=== PATIENT | female | born 1935 | race Caucasian/White ===

== ENCOUNTER 2017-05-12 13:51 | Emergency (ER) | payer OTHER, MEDICARE ==
[~2017-05-12] VITALS: Ht 154.9 cm; Wt 74.8 kg
[~2017-05-12 13:51] MED LIST: CLARINEX5 M1 PO; GUAIFENESIN-COD10 ML PO; NASONEX17 GM NASB; PATADAY2.5 ML OPH; TESSALON PERLE100 M1 PO; VENTOLIN HFA18 GM INH
[2017-05-12 13:57] VITALS: BP 165/80
--- NOTE | 2017-05-12 14:02 | ED HAND/WRIST INJURY COMPLAINT ---
History of Present Illness General Chief Complaint: Hand or Wrist Injury Stated Complaint: BIBA, RIGHT WRIST PAIN Source: patient, family, old records, EMS Exam Limitations: no limitations Vital Signs & Intake/Output Vital Signs & Intake/Output Vital Signs Date Time Temp Pulse Resp B/P B/P Pulse O2 O2 Flow FiO2 Mean Ox Delivery Rate 05/12 1403 99 Room Air 05/12 1402 98.5 05/12 1357 8.5 72 18 165/80 96 Room Air Allergies Coded Allergies: No Known Allergies (08/12/15) Reconcile Medications Albuterol Sulfate (Ventolin Hfa) 18 GM HFA.AER.AD 2 PUF INH Q4-6 PRN PRN ASTHMA Benzonatate (Tessalon Perle) 100 MG CAPSULE 1 TAB PO TID PRN COUGH Cephalexin (Keflex) 500 MG CAPSULE 1 CAP PO TID cellulitis Desloratadine (Clarinex) 5 MG TABLET 1 TAB PO DAILY ALLERGIES Mometasone Furoate (Nasonex) 17 GM SPRAY.PUMP 2 SPRAY NASB DAILY ALLERGIES Olopatadine HCl (Pataday) 2.5 ML DROPS 1 GTT OPH DAILY ALLERGIC CONJUNCTIVITIS Oxycodone HCl/Acetaminophen (Percocet 5-325 MG Tablet) 5 MG-325 MG TABLET 1 TAB PO BID PRN pain Robitussin AC (Guaifenesin-Codeine Syrup) 10 ML LIQUID 5 ML PO QPM PRN COUGH Triage Note: 81 YEAR OLD FEMALE TO ER VIA AMBULANCE FROM HER HOME WITH COMPLAINTS OF 2 DAYS OF R WRIST PAIN , DENIES INJURY AND STATES THAT SHE WOKE THIS AM AND SHE IS UNABLE TO USE HER R HAND DUE TO PAIN, R WRIST NOTED TO BE RED AND WARM TO TOUCH, AFEBRILE, PAIN IS CONSTANT 10/10. DENIES INJURY. Triage Nurses Notes Reviewed? yes Occurred: just prior to arrival Duration: day(s): (2), constant Timing: recent history Injury Environment: home Severity: moderate Severity Numbers: 10 Pain/Injury Location: Right: Wrist. Method of Injury: unknown Modifying Factors: Improves With: rest. Worsens With: movement. Associated Symptoms: swelling, redness HPI: 81-year-old female with history of hypertension, nephrectomy, Presents the emergency room brought in by ambulance with her son presents complaining of 2 day history of right wrist pain. She denies any known injury or trauma however states she believes she was bit by a spider. She states it has been red warm and painful. No fever no chills she is not taken anything for pain. Pain is worse with attempted range of motion of her wrist. She denies any hand forearm or other joint pain. No chest pain shortness of breath abdominal pain (William Cervantes) Past History Travel History Traveled to [place] past 21 day No Medical History Any Pertinent Medical History? see below for history Neurological: NONE EENT: NONE Cardiovascular: HTN, LE EDEMA Respiratory: NONE Gastrointestinal: NONE Hepatic: NONE Renal: 1 KIDNEY (HX OF CA) Musculoskeletal: NONE Psychiatric: NONE Endocrine: NONE Blood Disorders: NONE Cancer(s): NONE PROCEDURES NURSE/Reproductive: NONE Surgical History Surgical History: non-contributory Psychosocial History What is your primary language Vietnamese Tobacco Use: Never used ETOH Use: denies use Illicit Drug Use: denies illicit drug use Family History Hx Contributory? No (William Cervantes) Review of Systems Review of Systems Constitutional: Reports: see HPI. Comments Review of systems: See HPI, All other systems negative. Constitutional, no chills no fever, no malaise no weight loss HEENT: no sore throat no congestion, Cardiovascular: No chest pain , Skin: see hpi Respiratory: No dyspnea no cough GI: No nausea no vomiting, Muscle skeletal: (+) joint pain, no back pain Neurologic: , no headache Heme/endocrine: No bruising Immunology: No lymphadenopathy (William Cervantes) Physical Exam Physical Exam General Appearance: well developed/nourished, alert, awake Hand Left: normal inspection, normal range of motion Hand Right: normal range of motion Comments: Well-developed well-nourished person in no acute distress HEENT: Normal EENT exam; PERRL, EOMI, HEAD is atraumatic. moist mucous membranes. Neck: Supple, nnormal range of motion Back: Full range of motion Cardiovascular: Regular rate and rhythms no murmur Respiratory: Chest nontender.There were no bony deformities, no asymmetry. No respiratory distress. Patient speaking in full complete sentences. Breath sounds clear to auscultation bilaterally: NO W/R/R Shoulder: Atraumatic/Stable. FROM . Elbow: Atraumatic/stable. FROM. No laxity Upper arm/Forearm: Atraumatic. Nontender. No edema, 5 out of 5 icebox man strength noted to bilateral upper extremities Hand/Wrist: Skin intact. Limited range of motion secondary to pain, there is erythema and warmth and tenderness over the dorsal right wrist, no effusion the hand is atraumatic with full range of motion of all fingers there is no streaking up the forearm the form is atraumatic skin is intact- No obvious bite gayathri noted Pulses: Normal/equal radial pulses bilaterally. Brisk cap refill Lower Extremity: No edema, full range of motion of extremities Neuro: Alert oriented x3, motor sensory normal,. There were no obvious focal neurologic abnormalities. Skin: skin is warm and dry. Psych: Mood and affect is normal, memory and judgment is normal. (Vee HUGHES,William) Progress Differential Diagnosis: abscess, cellulitis, contusion, dislocation, fracture, gout, septic arthritis, sprain Plan of Care: Orders Procedure Date/time Status LACTIC ACID 05/12 1710 Active Durable Medical Equipment 05/12 1614 Active BLOOD CULTURE 05/12 141 Active LACTIC ACID 05/12 141 Complete HIGH SENSITIVITY CRP 05/12 141 Complete WESTERGREN SED RATE 05/12 141 Active COMPREHENSIVE METABOLIC PANEL 05/12 141 Complete CBC WITHOUT DIFFERENTIAL 05/12 1409 Active Laboratory Tests 05/12/17 1440: Anion Gap 8, Estimated GFR > 60, BUN/Creatinine Ratio 23.3, Glucose 109 H, Lactic Acid 0.7, Calcium 9.3, Total Bilirubin 0.7, AST 24, ALT 21, Alkaline Phosphatase 102, C-React Prot High Sens 12.8 H, Total Protein 6.8, Albumin 3.8, Globulin 3.0, Albumin/Globulin Ratio 1.3, CBC w Diff NO MAN DIFF REQ, RBC 4.25, MCV 84.8, MCH 28.5, MCHC 33.6, RDW 15.3 H, MPV 7.1 L, Gran % 82.3 H, Lymphocytes % 8.9 L, Monocytes % 8.3, Eosinophils % 0.5, Basophils % 0, Absolute Granulocytes 9.7 H, Absolute Lymphocytes 1.1 L, Absolute Monocytes 1.0 H, Absolute Eosinophils 0.1, Absolute Basophils 0, ESR Westergren Pending Microbiology 05/12 144 BLOOD: Blood Culture - RECD 05/12 1409 BLOOD: Blood Culture - ORD Labs ordered old records reviewed case discussed with Dr. Dove agrees with plan I discussed the patient and her son at leave fall for lab results. Advised close follow-up with her primary care physician tomorrow for wound check. Brace was applied. I discussed with them my differential included cellulitis versus septic arthritis we will treat her with Keflex they're requesting Percocet for pain brace was applied return precautions were discussed including worsening pain despite medication fever chills she is nontoxic appearing at this time they feel comfortable with this plan I advised if she is unable to follow up with her doctor in 24-48 hours to return here Diagnostic Imaging: Viewed by Me: Radiology Read. Discussed w/RAD: Radiology Read. Radiology Impression: PATIENT: DONALD TOLLIVER PRESENT AGE: 81 PATIENT ACCOUNT NO: [id number] : 37 LOCATION: [facility] ORDERING PHYSICIAN: William HUGHES SERVICE DATE: 05/12/17-1409 EXAM TYPE: RAD - XRY-WRIST COMPLETE-RIGHT EXAMINATION: XR WRIST, RIGHT CLINICAL INFORMATION : Redness and swelling. COMPARISON: None TECHNIQUE: Four views of the right wrist. FINDINGS: There are bandages over the wrist. There is no acute abnormality. There is no fracture or bone destruction. There are chronic changes. There are subchondral cystic changes primarily affecting the sclerotic triquetrum as well as the lunate and hamate. There is spurring of the navicular and multangular bones at the radial side of the wrist. IMPRESSION: No acute abnormality. Degenerative changes of the wrist. DICTATED BY: Dustin Cardona MD DATE/TIME DICTATED:05/12/171448 EQUINE DENTIST:JONNY DATE/TIME TRANSCRIBED:05/12/171448 CONFIDENTIAL, DO NOT COPY WITHOUT APPROPRIATE AUTHORIZATION. <Electronically signed in Other Vendor System> SIGNED BY: Dustin Cardona MD 05/12/17 1547 (William Cervantes) Departure Departure Time of Disposition: 1614 Disposition: HOME OR SELF CARE Condition: Stable Clinical Impression Primary Impression: Cellulitis Referrals: Tano Sue APRN (PCP/Family) Additional Instructions: Follow-up with your primary care physician as discussed tomorrow for follow-up evaluation tomorrow or Wednesday. Keflex as directed Percocet for breakthrough pain. Use caution as this may make you drowsy. Rest ice brace as discussed return anytime sooner as discussed if he had worsening pain despite medication redness warm swelling. Departure Forms: Customer Survey General Discharge Information Prescriptions: Current Visit Scripts Oxycodone HCl/Acetaminophen (Percocet 5-325 MG Tablet) 1 TAB PO BID PRN pain #10 TAB Cephalexin (Keflex) 1 CAP PO TID #21 CAP (William Cervantes) PA/GLAZING DEPARTMENT SUPERVISOR Co-Sign Statement Statement: ED Attending supervision documentation- [X] I saw and evaluated the patient. I have also reviewed all the pertinent lab results and diagnostic results. I agree with the findings and the plan of care as documented in the PA's/GLAZING DEPARTMENT SUPERVISOR's documentation. [X] I have reviewed the ED Record and agree with the PA's/GLAZING DEPARTMENT SUPERVISOR's documentation. [] Additions or exceptions (if any) to the PAs/GLAZING DEPARTMENT SUPERVISOR's note and plan are summarized below: [] (Derrell STINSON,Malini)
--- NOTE | 2017-05-12 14:56 | RADIOLOGY REPORT ---
EXAMINATION: XR WRIST, RIGHT CLINICAL INFORMATION: Redness and swelling. COMPARISON: None TECHNIQUE: Four views of the right wrist. FINDINGS: There are bandages over the wrist. There is no acute abnormality. There is no fracture or bone destruction. There are chronic changes. There are subchondral cystic changes primarily affecting the sclerotic triquetrum as well as the lunate and hamate. There is spurring of the navicular and multangular bones at the radial side of the wrist. IMPRESSION: No acute abnormality. Degenerative changes of the wrist.
[2017-05-12 15:00] LABS: ABSOLUTE BASOPHIL COUNT 0 /CUMM (0.0-0.2); ABSOLUTE EOSINOPHIL COUNT 0.1 /CUMM (0.0-0.7); ABSOLUTE GRANULOCYTE CT 9.7 /CUMM (1.4-6.5); ABSOLUTE LYMPH COUNT 1.1 /CUMM (1.2-3.4); BASOPHIL % 0 % (0.0-2.0); EOSINOPHIL % 0.5 % (0-5); GRANULOCYTE % 82.3 % (42.2-75.2); HEMATOCRIT 36.1 % (37-47); MEAN CORPUSCULAR HGB 28.5 PG (27.0-31.0); MEAN CORPUSCULAR HGB CONC 33.6 G/DL (33.0-37.0); MEAN CORPUSCULAR VOLUME 84.8 FL (81.0-99.0); MEAN PLATELET VOLUME 7.1 FL (7.4-10.4); PLATELET COUNT 335 /CUMM (130-400); RBC DISTRIBUTION WIDTH 15.3 % (11.5-14.5); RED BLOOD CELL CT 4.25 /CUMM (4.20-5.40); WHITE BLOOD CELL COUNT 11.8 /CUMM (4.8-10.8)
[2017-05-12] MEDS ORDERED: KEFLEX500 M1 PO (16:16)
[2017-05-12] MEDS ORDERED: PERCOCET 5-3251 EACH PO (16:16)
== END 2017-05-12 16:36 ==
LOC: ERH 13:51
PROVIDERS: Physician Assistant Medical
DX: L03.113 Cellulitis of right upper limb (principal)
CPT/HCPCS: 73110-RT; 87040

== ENCOUNTER 2017-07-05 01:13 | Inpatient (IN) | payer OTHER, MEDICARE ==
[~2017-07-05] VITALS: Ht 154.9 cm; Wt 80.3 kg
[~2017-07-05 01:13] MED LIST changes: +AMLODIPINE BESYL5 M1 PO; +ESTRACE0.5 M1 PO; +FLUTICASONE PRO16 GM NASB; +KEFLEX500 M1 PO; +LASIX20 M1 PO; +LIDOCAINE1 EACH TOP; +LOSARTAN POTASS50 M1 PO; +PERCOCET 5-3251 EACH PO; +TRAMADOL HCL50 M1 PO; +TRAZODONE HCL50 M1 PO
--- NOTE | 2017-07-05 09:51 | Operative Report ---
Operative/Inv Procedure Report Surgery Date: 07/05/17 Name of Procedure: Left total knee arthroplasty Pre-Operative Diagnosis: Left knee primary osteoarthritis Post-Operative Diagnosis: Same Estimated Blood Loss: scant Surgeon/Paste Mixing Supervisor: Neha STINSON,Morteza Perkins PA Anesthesia: block Implants: Isa triathlon total knee system-size 3 femur, size 3 tibia, 11 mm cruciate retaining polyethylene, 27 patella Drains: None Specimens: Femoral, tibial, patellar bone, meniscal tissues Microbiology: Urine Tourniquet: 52 min Complications: None Condition: Stable Operative Indication: Patient is a 81-year-old woman with a long history of gradually worsening left knee symptoms. She was diagnosed with severe end-stage osteoarthritis by x-ray. She underwent conservative measures with minimal relief. She underwent total knee arthroplasty on the right side elsewhere in the past. She wished to proceed with total knee arthroplasty for the left after risks, benefits and expectations of the surgical treatment which included but were not limited to persistent knee pain, need for subsequent surgery, infection, DVT, injury to blood vessel or nerve, anesthesia risks Operative/Procedure Note Note: Patient was brought to the operating room and transferred to the operating table. Once under appropriate anesthesia the left lower extremity was prepped and draped in standard fashion. Preoperative IV antibiotics were given prophylactically. Left lower extremity was elevated exsanguinated and tourniquet was inflated to 300 mm of pressure. Standard anterior incision was made for anticipated medial parapatellar approach to the knee. Incision was taken down sharply to the underlying retinaculum. A medial retinacular approach was used with a minimal extension into the quadriceps tendon. The patella was subluxed and the knee was flexed forward after balancing soft tissues medially. Remnants of the medial and lateral meniscal tissues were excised. Eburnated bone on the medial aspect. Severe degenerative changes in the lateral aspect. Mild degenerative changes of the patella surface were noted. Remnants of the ACL was excised. Placing the retractors medially and laterally. I then proceeded with using the drill to enter the intramedullary canal for the intramedullary guide for the distal femoral cut. The cutting block was pinned in position for a 6 valgus cut. This was made while protecting the soft tissues. The femur was incised to a size 4 initially but then when I started making my cut it was clear the patient was posterior to 3. I used the 3 cutting block to finish preparation of the distal femur. I then placed a PCL retractor posteriorly and recessed the PCL for balancing purposes. I repositioned the medial lateral knee retractors and then used the external medullary guide for the tibial. The cutting block was pinned in place for a neutral cut from medial to lateral and reproducing patient's posterior slow- paced on intraoperative findings and preoperative x-rays. The cut was made. I then sized the tibia to a size 3. 2 trial reduction with the 3 tibia 11 mm polyethylene and the 3 femur. The knee was taken out to full extension. The patella was then measured and the appropriate thickness was removed and then replaced with a size 27 patella. The 3 lug holes were drilled and the patellar tracking was found to be excellent. I then removed all trial components. I finished preparation of tibia with the tibial punch with the appropriate rotation based on the anatomy as well as the trial reduction done previously. I then removed all instruments from the knee and copiously irrigated the knee. I used the anterior chamfer bone to plug the distal femur to minimize postoperative hemarthrosis and swelling. Once the cement was ready was applied to the dry clean bony surfaces of the tibia. The size 3 tibia was impacted in place and excess cement was removed curettes. Cement was applied to the dry clean bony surfaces of the distal femur and the size 3 femur was impacted in place and excess cement was removed with curettes. The 11 mm trial polyethylene was inserted and the knee was taken out to full extension to pressurize the cement bone surfaces. Cement was applied to the dry clean bony surfaces of the patella. The size 27 patella was impacted in place and excess cement was removed with a knife. As the cement was hardening I did appear articular pericapsular injection of a cocktail which included ropivacaine with epinephrine and Toradol for postoperative pain and inflammation management cement was hardening took the knee through range of motion. Small pieces of excess cement removed with osteotome. The trial polyethylene was removed after was satisfied with the stability the knee in full extension mid flexion and full flexion to gravity. Excellent patellofemoral tracking. Copious irrigation the tibial tray followed. I major there was no remaining soft tissue, bone fragments or cement fragments within the tibial tray and then I impacted the definitive size 11 mm cruciate retaining polyethylene in place. The locking mechanism was confirmed. Again the knee was taken through range of motion. I was satisfied with the stability in the range of motion. Copious irrigation followed. Copious irrigation followed every level of closure. Tourniquet was deflated at 52 minutes. Hemostasis was obtained. I then closed the retinaculum and minimal extension into the quadriceps with interrupted #1 Vicryl sutures. Subcutaneous tissues closed in 2 layers with 2-0 Vicryl and skin was closed with a running 3- 0 Vicryl suture with the knee in flexion. Appropriate dressings were applied and patient was awakened and taken to recovery room in good condition. No intraoperative complications. Blood loss was scant Discharge Disposition: PACU
--- NOTE | 2017-07-05 11:56 | PN- Cardiology ---
Subjective Subjective: Charming patient of 81 years of age with new onset atrial fibrillation uncovered in the PACU unit, immediately post operatively of total left knee replacement which was uneventful. The patient has a personnal medical history of hypertension well controlled with her drug regimen (no list at the moment of home meds) and pelvic floor repair. She has never had a stroke, embolism of thrombosis, no know CAD, no heart failure, no diabetes, no bleeding diasthesis. Her pain level is 0/10 at the moment, she denies chest pain, denies palpitations , denies dyspnea. EKG shows atrial fibrillation with ventricular rate around 90bpm, without evidence of ischemia or prior TN. Review of Systems Constitutional: Reports: see HPI. Cardiovascular: Reports: see HPI. Respiratory: Denies: cough, hemoptysis, orthopnea, short of breath, sputum production, wheezing. Gastrointestinal: Denies: abdominal pain, diarrhea, distention, bowel incontinence, melena, bloody stool. Genitourinary: Denies: dysuria, hematuria. Neurological/Psychological: Denies: anxiety, depressed, paresthesia, pre-existing deficit, tremors. Hematologic/Endocrine: Denies: bleeding. Objective Vital Signs and I&Os Sat: 96% on room air BP 104/80 HR 85-110 bpm, irregular Physical Exam General Appearance: no apparent distress, awake, comfortable Head: atraumatic Neck: normal inspection Respiratory: normal breath sounds, no respiratory distress, lungs clear Cardiovascular: irregularly irregular (NO MURMUR AUDIBLE) Abdomen: soft, non-tender, no organomegaly Extremities: normal capillary refill (LEFT LOWER EXTREMITY COVERED), no edema ( RIGHT LEG) Neurologic/Psychiatric: awake, alert, oriented x 3, normal mood/affect Current Medications: Current Medications Sig/Argelia Start time Last Medication Dose Route Stop Time Status Admin Acetaminophen 0 .STK-MED ONE 07/06 703 DC PO Acetaminophen 650 MG ONCE 07/05 NR PO 07/05 2358 Celecoxib 400 MG ONCE 07/05 NR PO 07/05 2358 Dexamethasone 0 .STK-MED ONE 07/06 703 DC .ROUTE Dexamethasone 10 MG ONCE 07/05 0000 NR IV 07/05 2358 Gabapentin 0 .STK-MED ONE 07/05 704 DC PO Gabapentin 300 MG ONCE 07/05 NR PO 07/05 2358 Oxycodone HCl 0 .STK-MED ONE 04/30 0704 DC PO Oxycodone HCl 10 MG ONCE 07/05 0000 NR PO 07/05 235 Ropivacaine 500 ML ONCE ONE 07/05 1030 AC ON-Q Ball 1 BAG INJ 07/07 1229 Scopolamine HBr 0 .STK-MED ONE 07/05 0704 DC TOP Scopolamine HBr 1 PAT ONCE 07/05 0000 NR TOP 07/05 235 Vancomycin HCl 1,000 MG ONCE 07/05 0000 DC Sodium Chloride 250 ML IV 07/05 235 Assessment/Plan Assessment/Plan New onset atrial fibrillation immediately post op of total left knee replacement. CHADS 2 (age, hypertension). HR is well controlled at the moment, but i would begin a small dose of betablocker to avoid tachyarrhythmia (metoprolol 25 mg PO bid). There is no urgency to anticoagulate as her daily stroke risk is < 1%. Eliquis would be a good choice, there is no counterindication once orthopedic surgery is comfortable, it could be started at 5 mg PO bid in 2-3 days. An echocardiogram should be done as part of the regular routine for new onset afib as well as a nuclear stress test (nuclear stress could be done as outpatient). Continue telemetry? Yes
--- NOTE | 2017-07-05 13:14 | PN- Orthopedic ---
See Addendum Subjective Subjective: POC Patient noted to be in new onset atrial fibrillation immediately post op, given Labetalol x 1 with good effect. Evaluated in PACU by cardiology who recommends low dose beta diogo (Metoprolol 25 mg BID). Patient without complaints currently. Denies any left knee pain. Denies any chest pain or SOB. Eric in place with clear yellow urine. Objective Vital Signs and I&Os Afebrile, VSS. HR 70-80. Physical Exam: Lying in bed in NAD. Cardiac: irregularly irregular Pulmonary: CTAB Abdomen: Soft, non tender. LLE: Dressing c/d/i. No drainage noted. Calf soft, compressible, non tender. + DP/PT pulse. Sensation and motor grossly intact. Assessment/Plan Assessment/Plan A/P: 81 y/o female POD # 0 s/p left TKR complicated by new onset atrial fibrillation. Evaluated by cardiology in PACU. Currently stable post operatively. - Diet as tolerated - Pain control and antiemetics prn, on Q pump - PT consult - Home medications resumed - Eric to gravity - Post op L Knee x-ray - Cardiology following - started on low dose BB (Metoprolol 25 mg BID), recommend echo and nuclear stress test (can be done as outpatient) - DVT ppx - Eliquis 2.5 mg BID to start tomorrow Core Measures Venous Thromboembolism VTE Risk Factors Surgery No Mechanical VTE Prophylaxis d/t N/A MechProphylax Ordered No VTE Pharm Prophylaxis d/t NA PharmProphylax ordered
[2017-07-05 14:04] VITALS: BP 100/70
--- NOTE | 2017-07-05 14:58 | Cons- Cardiology ---
General Information and HPI Consulting Request Date of Consult: 07/05/17 Requested By: Neha STINSON,Gregorio History of Present Illness: Rachid patient of 81 years of age with new onset atrial fibrillation uncovered in the PACU unit, immediately post operatively of total left knee replacement which was uneventful. The patient has a personnal medical history of hypertension well controlled with her drug regimen (no list at the moment of home meds) and pelvic floor repair. She has never had a stroke, embolism of thrombosis, no know CAD, no heart failure, no diabetes, no bleeding diasthesis. Her pain level is 0/10 at the moment, she denies chest pain, denies palpitations , denies dyspnea. EKG shows atrial fibrillation with ventricular rate around 90bpm, without evidence of ischemia or prior ID. Allergies/Medications Allergies: Coded Allergies: No Known Allergies (06/28/17) Home Med List: Amlodipine Besylate 5 MG TABLET 1 TAB PO DAILY HTN (Reported) Estradiol (Estrace) 0.5 MG TABLET 1 TAB PO DAILY HORMONE (Reported) Fluticasone Propionate 50 MCG/ACTUATION SPRAY.SUSP 1 SPRAY NASB PRN ALLERGIES (Reported) Furosemide (Lasix) 20 MG TABLET 1 TAB PO PRN DIURETIC (Reported) Lidocaine 5 % ADH..PATCH 1-2 PAT TOP DAILY PAIN (Reported) Losartan Potassium 50 MG TABLET 1 TAB PO DAILY BP (Reported) Tramadol HCl 50 MG TABLET 1 TAB PO TIDPRN PAIN (Reported) Trazodone HCl 50 MG TABLET 1 TAB PO QPM SLEEP (Reported) Current Medications: Current Medications Sig/Argelia Start time Last Medication Dose Route Stop Time Status Admin Acetaminophen 0 .STK-MED ONE 07/06 703 DC PO Acetaminophen 1,000 MG .STK-MED ONE 07/05 0656 DC IV 07/05 656 Acetaminophen 650 MG ONCE 07/05 0000 DC PO 07/05 2358 Amlodipine Besylate 5 MG DAILY 07/06 899 AC PO Apixaban 2.5 MG BID 07/06 899 AC PO Celecoxib 400 MG DAILY 07/06 899 AC PO Celecoxib 400 MG ONCE 07/05 0000 DC PO 07/05 2358 Dexamethasone 0 .STK-MED ONE 07/06 703 DC .ROUTE Dexamethasone 10 MG ONCE 07/05 0000 DC IV 07/05 2358 Dextrose/Lactated 1,000 ML Q13H 07/05 1200 AC Ringer's IV Docusate Sodium 100 MG DAILY NEEDED PRN 07/05 1200 AC PO Fentanyl Citrate 100 MCG .STK-MED ONE 07/05 0655 DC IM 07/05 0656 Furosemide 20 MG DAILY PRN 07/05 0945 AC PO Gabapentin 0 .STK-MED ONE 07/05 0705 DC PO Gabapentin 300 MG ONCE 07/05 0000 DC PO 07/05 2359 Losartan Potassium 50 MG DAILY 07/06 0900 AC PO Metoprolol Tartrate 25 MG BID 07/05 2100 AC PO Midazolam HCl 2 MG .STK-MED ONE 07/05 0655 DC IM 07/05 0656 Morphine Sulfate 2 MG Q3P PRN 07/05 1200 AC IV Morphine Sulfate 4 MG Q3P PRN 07/05 1200 AC IV Ondansetron HCl 4 MG Q6P PRN 07/05 1200 AC IV Oxycodone HCl 0 .STK-MED ONE 07/05 0704 DC PO Oxycodone HCl 10 MG ONCE 07/05 0000 DC PO 07/05 2359 Oxycodone/ 1 TAB Q4P PRN 07/05 1200 AC Acetaminophen PO Oxycodone/ 2 TAB Q4P PRN 07/05 1200 AC Acetaminophen PO Polyethylene Glycol 17 GM DAILY NEEDED PRN 07/05 1200 AC PO Ropivacaine 500 ML ONCE ONE 07/05 1030 AC ON-Q Ball 1 BAG INJ 07/07 1229 Scopolamine HBr 0 .STK-MED ONE 07/05 0704 DC TOP Scopolamine HBr 1 PAT ONCE 07/05 0000 DC TOP 07/05 2359 Senna/Docusate Sodium 2 TAB AT BEDTIME NEED.. 07/05 1200 AC PO Vancomycin HCl 1,000 MG ONCE ONE 07/05 1900 AC Sodium Chloride 250 ML IV 07/05 1959 Vancomycin HCl 1,000 MG ONCE 07/05 0000 DC Sodium Chloride 250 ML IV 07/05 2359 Review of Systems Review of Systems: Constitutional: Reports: see HPI. Cardiovascular: Reports: see HPI. Respiratory: Denies: cough, hemoptysis, orthopnea, short of breath, sputum production, wheezing. Gastrointestinal: Denies: abdominal pain, diarrhea, distention, bowel incontinence, melena, bloody stool. Genitourinary: Denies: dysuria, hematuria. Neurological/Psychological: Denies: anxiety, depressed, paresthesia, pre-existing deficit, tremors. Hematologic/Endocrine: Denies: bleeding. Past History Medical History Blood Transfusion Hx: No Neurological: NONE EENT: NONE Cardiovascular: HTN, LE EDEMA Respiratory: NONE Gastrointestinal: NONE Hepatic: NONE Renal: 1 KIDNEY (HX OF CA) Musculoskeletal: NONE Psychiatric: NONE Endocrine: NONE Blood Disorders: NONE Cancer(s): NONE CLIENT SOLUTIONS DIRECTOR/Reproductive: NONE Surgical History Surgical History: R NEPHRECTOMY Psychosocial History Where Do You Live? Home Smoking Status: Unknown If Ever Smoked Exam & Diagnostic Data Vital Signs and I&O Vital Signs Date Time Temp Pulse Resp B/P B/P Pulse O2 O2 Flow FiO2 Mean Ox Delivery Rate 07/05 1404 97.8 68 20 100/70 95 Room Air 07/05 1344 Room Air Intake & Output 07/05 1600 07/05 0800 07/05 0000 07/04 1600 07/04 0800 07/04 0000 Intake Total Output Total Balance Patient 170 lb Weight Weight Bed scale Measurement Method Physical Exam: Physical Exam General Appearance: no apparent distress, awake, comfortable Head: atraumatic Neck: normal inspection Respiratory: normal breath sounds, no respiratory distress, lungs clear Cardiovascular: irregularly irregular (NO MURMUR AUDIBLE) Abdomen: soft, non-tender, no organomegaly Extremities: normal capillary refill (LEFT LOWER EXTREMITY COVERED), no edema ( RIGHT LEG) Neurologic/Psychiatric: awake, alert, oriented x 3, normal mood/affect Labs/Zeyad Results: Laboratory Tests 07/05 1130 Chemistry Creatine Kinase (30 - 135 U/L) 102 Troponin I (< 0.11 ng/ml) < 0.01 Assessment/Plan Assessment/Plan New onset atrial fibrillation immediately post op of total left knee replacement. CHADS 2 (age, hypertension). HR is well controlled at the moment, but i would begin a small dose of betablocker to avoid tachyarrhythmia (metoprolol 25 mg PO bid). There is no urgency to anticoagulate as her daily stroke risk is < 1%. Eliquis would be a good choice, there is no counterindication once orthopedic surgery is comfortable, it could be started at 5 mg PO bid in 2-3 days. An echocardiogram should be done as part of the regular routine for new onset afib as well as a nuclear stress test (nuclear stress could be done as outpatient). Consult Acknowledgment - Thank you for your consult request.
--- NOTE | 2017-07-05 15:39 | Cons- Medical ---
Dylan STINSON,[facility] 07/05/17 1508: General Information and HPI Consulting Request Date of Consult: 07/05/17 Requested By: Neha STINSON,Gregorio Reason for Consult: New onset atrial fibrillation Source of Information: patient, old records Exam Limitations: no limitations History of Present Illness: Ms. 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 Patient was admitted to telemetry floor from PACU after left knee replacement with new onset atrial fibrillation. Patient is alert oriented 3 however reported dizziness. She denied any chest pain, palpitation, difficulty breathing, abdominal pain, nausea or vomiting. Left knee pain is controlled at time of the encounter. Patient denied any previous history of atrial fibrillation, denied being on any blood thinners in the past. Patient can not take any NSAIDs including aspirin because of her right nephrectomy. She denied any coronary artery disease history, CHF, history of stroke or TIA. Allergies/Medications Allergies: Coded Allergies: No Known Allergies (06/28/17) Home Med List: Amlodipine Besylate 5 MG TABLET 1 TAB PO DAILY HTN (Reported) Estradiol (Estrace) 0.5 MG TABLET 1 TAB PO DAILY HORMONE (Reported) Fluticasone Propionate 50 MCG/ACTUATION SPRAY.SUSP 1 SPRAY NASB PRN ALLERGIES (Reported) Furosemide (Lasix) 20 MG TABLET 1 TAB PO PRN DIURETIC (Reported) Lidocaine 5 % ADH..PATCH 1-2 PAT TOP DAILY PAIN (Reported) Losartan Potassium 50 MG TABLET 1 TAB PO DAILY BP (Reported) Tramadol HCl 50 MG TABLET 1 TAB PO TIDPRN PAIN (Reported) Trazodone HCl 50 MG TABLET 1 TAB PO QPM SLEEP (Reported) Review of Systems Review of Systems Constitutional: Denies: see HPI, chills, fever. EENTM: Denies: blurred vision, nasal congestion. Cardiovascular: Denies: chest pain, orthopena, palpitations, peripheral edema. Respiratory: Denies: cough, short of breath. GI: Denies: abdominal pain, diarrhea, nausea, vomiting. Genitourinary: Denies: discharge, dysuria. Musculoskeletal: Denies: back pain. Skin: Denies: rash. Past History Medical History Blood Transfusion Hx: No Neurological: NONE EENT: NONE Cardiovascular: HTN, LE EDEMA Respiratory: NONE Gastrointestinal: NONE Hepatic: NONE Renal: 1 KIDNEY (HX OF [place]) Musculoskeletal: NONE Psychiatric: NONE Endocrine: NONE Blood Disorders: NONE Cancer(s): NONE CONTROL PANEL TESTER/Reproductive: NONE Surgical History Surgical History: R NEPHRECTOMY Psychosocial History Where Do You Live? Home Smoking Status: Unknown If Ever Smoked Exam & Diagnostic Data Last 24 Hrs of Vital Signs/I&O Vital Signs Date Time Temp Pulse Resp B/P B/P Pulse O2 O2 Flow FiO2 Mean Ox Delivery Rate 07/05 1404 97.8 68 20 100/70 95 Room Air 07/05 1344 Room Air Intake & Output 07/05 1600 07/05 0800 07/05 0000 Intake Total Output Total Balance Patient 77.309 kg Weight Weight Bed scale Measurement Method Physical Exam General Appearance: no apparent distress, alert, awake Head: atraumatic, normal appearance Eyes: Bilateral: normal appearance, PERRL, EOMI. Ears, Nose, Throat: normal pharynx, normal ENT inspection Neck: normal inspection, supple, full range of motion Respiratory: normal breath sounds, chest non-tender, no respiratory distress Cardiovascular: irregularly irregular Gastrointestinal: normal bowel sounds, soft, non-tender Extremities: normal inspection, normal capillary refill, normal range of motion, no edema Neurologic/Psych: no motor/sensory deficits, awake, alert, oriented x 3, sales agent trading stamps II- XII nml as tested, disoriented x 3 Last 24 Hrs of Labs/Zeyad: Laboratory Tests 07/06/17 0645: Sodium Pending, Potassium Pending, Chloride Pending, Carbon Dioxide Pending, Anion Gap Pending, BUN Pending, Creatinine Pending, BUN/Creatinine Ratio Pending , CBC w Diff Pending, WBC Pending, RBC Pending, Hgb Pending, Hct Pending, MCV Pending, MCH Pending, MCHC Pending, RDW Pending, Plt Count Pending, MPV Pending, Gran % Pending, Lymphocytes % Pending, Monocytes % Pending, Eosinophils % Pending, Basophils % Pending, Absolute Granulocytes Pending, Absolute Lymphocytes Pending, Absolute Monocytes Pending, Absolute Eosinophils Pending, Absolute Basophils Pending 07/05/17 1130: Anion Gap 11, Estimated GFR 53 L, BUN/Creatinine Ratio 26.0 H, Glucose 266 H, Calcium 8.6, Magnesium 1.7, Creatine Kinase 102, Troponin I < 0.01, TSH 1.330 Assessment/Plan Assessment/Plan Ms. 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 Patient was admitted to telemetry floor from PACU after left knee replacement with new onset atrial fibrillation. Problem list 1-New onset atrial fibrillation chads vas score to 4 points with 4.8% annual stroke risk 2-Left total knee replacement Plan Continue monitor on telemetry Vitals every shift Obtain CBCs, basic metabolic panel including magnesium and phosphorus and replete if needed Coagulation profile TSH DDimer Continue metoprolol 25 twice daily Continue blood pressure medication losartan and amlodipine Pain medication per surgical team Please cluster nursing intervention during the daytime and provide quite sleep at night to avoid hospital-acquired delirium Anticoagulation per cardiology Recommendation for d-dimer and bilateral lower extremity venous Doppler scan as patient was recently hypoactive because of left knee pain. I discussed this recommendation with the surgical PA and she will discuss it with her attending and ordering if he agrees. Continue Alps at all time Problem List: 1. Atrial fibrillation Consult Acknowledgment - Thank you for your consult request. Edward Alejandro MD 07/05/17 3749: Assessment/Plan Consult Acknowledgment - Thank you for your consult request. Attending MD Review Statement Attending Statement Attending MD Statement: examined this patient, discuss w/resident/PA/MILL PLATFORM SUPERVISOR, agreed w/resident/PA/MILL PLATFORM SUPERVISOR, reviewed EMR data (avail), amended to note Attending Assessment/Plan: The patient is a 72 yo female with h/o HTN, h/o rectal/bladder prolapse and repair, h/o right TKR in past, s/p right nephrectomy (?benign tumor at [place]) who underwent elective left TKR today and was noted to be in new atrial fibrillation (HR 117 on EKG) post operatively. The patient has no h/o afib, denied chest pain , palpitations or dyspnea. Was given Labetalol post op and started on Metoprolol 25 mg bid by Cardiology after consultation. Physical Exam: VS: T 97.8, P 68 (max was 117), R 20, BP 100/70, PO 95% RA HEENT: eyes- PERRLA, EOMI yulisa- sl dry mucosa, no lesions Neck: No JVD/bruits Chest: clear Cor: sl irreg, nl rate, nl S1, S2 w/o murm Abd: BS+, soft, NT, - HSM Ext: s/p left TKR, no edema RLE, pulses 2+ Neuro: alert & oriented x 3, somewhat vague historian, non-focal exam (gait not tested) Labs/Tests- as above Impression/Plan: #New Atrial Fibrillation- HR now controlled post beta diogo. No ischemic findings on EKG. Cardiology consult appreciated. Jerald-Vasc 2 score as above 4 with 4.8% annual stroke risk. In patient who was relatively immobile prior to surgery, pulmonary embolism/dvt is in differential as cause. Plan: As per above- would check TSH, lytes (including K and Mg), D-dimer, US LE, INR. Consider SQ heparin as planning on Eliquis tomorrow. If any respiratory decompensation needs CTPA. ECHO done- check for pulmonary HTN, etc. Monitor on telemetry- follow-up TI. #Essential HTN- BP good at present. Plan: Continue Losartan/Amlodipine. Metoprolol being added and may need to hold other meds if BP low. #S/P Nephrectomy- renal function OK. The patient appears slightly dry. Plan: Watch renal function s/p dose of Vanco and using Celebrex. Would hold Lasix in morning pending BEP (she received a dose post op).
[2017-07-05 19:56] VITALS: BP 110/80
[2017-07-05 22:49] VITALS: BP 118/84
[2017-07-06 01:45] VITALS: BP 114/74
[2017-07-06 04:30] VITALS: BP 108/74
[2017-07-06 06:21] VITALS: BP 108/68
--- NOTE | 2017-07-06 07:38 | PN- Orthopedic ---
See Addendum Subjective Subjective: Patient reports pain is well controlled. She reports pain is her right calf from the alps. She is eager to get out of bed and have breakfast. She offers no complaints. Denies numbness, parathesias. Objective Vital Signs and I&Os Vital Signs Date Time Temp Pulse Resp B/P B/P Pulse O2 O2 Flow FiO2 Mean Ox Delivery Rate 07/06 620 97.5 49 12 108/68 93 Room Air 07/06 0430 97.8 70 16 108/74 100 Room Air 07/06 0145 97.8 64 20 114/74 98 Room Air 07/06 0000 Room Air 07/05 2249 97.7 72 19 118/84 94 07/05 2207 67 07/05 1956 97.8 98 18 110/80 95 07/05 1600 71 16 97 Room Air 07/05 1404 97.8 68 20 100/70 95 Room Air 07/05 1344 Room Air Intake & Output 07/06 0800 07/06 0000 07/05 1600 07/05 0800 07/05 0000 07/04 1600 Intake Total 960 1499 75 Output Total 400 400 Balance 560 1099 75 Intake, IV 600 815 75 Intake, Oral 360 684 Output, Urine 400 400 Patient 171 lb 170 lb Weight Weight Bed scale Measurement Method Physical Exam: Gen - resting comfortably in nad Cardiac - irregular, bradycardic Lungs - CTAB Ext - LLE dressing c/d/i, onQ and ice in place, moves all extremities, motor and sensory intact, compartment soft, alps in place no edema or calf tenderness in LLE, mild calf pain in RLE, alps readjusted and pain improved. Current Medications: Current Medications Sig/Argelia Start time Last Medication Dose Route Stop Time Status Admin Acetaminophen 650 MG ONCE 07/05 0000 DC PO 07/05 2358 Amlodipine Besylate 5 MG DAILY 07/06 899 AC PO Apixaban 2.5 MG BID 07/06 899 AC PO Celecoxib 400 MG DAILY 07/06 899 CAN PO Celecoxib 400 MG ONCE 07/05 0000 DC PO 07/05 2358 Dexamethasone 10 MG ONCE 07/05 DC IV 07/05 2358 Dextrose/Lactated 1,000 ML Q13H 07/05 1200 AC 07/06 Ringer's IV 0540 Docusate Sodium 100 MG BID PRN 05/01 0900 AC PO Docusate Sodium 100 MG DAILY NEEDED PRN 07/05 1200 DC PO Estradiol 0.5 MG DAILY 07/06 09 AC PO Furosemide 20 MG DAILY PRN 07/05 0945 AC PO Gabapentin 300 MG ONCE 07/05 0000 DC PO 07/05 2359 Losartan Potassium 50 MG DAILY 07/06 09 AC PO Magnesium Oxide 400 MG ONE ONE 07/05 2014 DC 07/05 PO 07/06 2015 220 Metoprolol Tartrate 25 MG BID 07/05 2100 AC 07/05 PO 2207 Morphine Sulfate 2 MG Q3P PRN 07/05 1200 AC 07/06 IV 0101 Morphine Sulfate 4 MG Q3P PRN 07/05 1200 AC IV Morphine Sulfate 10 MG .STK-MED ONE 07/05 0732 DC IV 07/05 0733 Ondansetron HCl 4 MG Q6P PRN 07/05 1200 AC IV Oxycodone HCl 10 MG ONCE 07/05 0000 DC PO 07/05 2359 Oxycodone/ 1 TAB Q4P PRN 07/05 1200 AC Acetaminophen PO Oxycodone/ 2 TAB Q4P PRN 07/05 1200 AC Acetaminophen PO Polyethylene Glycol 17 GM DAILY NEEDED PRN 07/05 1200 AC PO Potassium Chloride 40 MEQ ONCE ONE 07/05 2014 DC 07/05 PO 07/06 2015 220 Ropivacaine 500 ML ONCE ONE 07/05 1030 AC ON-Q Ball 1 BAG INJ 07/07 1229 Scopolamine HBr 1 PAT ONCE 07/05 0000 DC TOP 07/05 2359 Senna/Docusate Sodium 2 TAB DAILY PRN 07/06 0900 AC PO Senna/Docusate Sodium 2 TAB AT BEDTIME NEED.. 07/05 1200 DC PO Tranexamic Acid 2,000 MG .STK-MED ONE 07/05 0752 DC IV 07/05 0753 Trazodone HCl 50 MG AT BEDTIME NEED.. 07/05 2130 AC 07/05 PO 2207 Vancomycin HCl 1,000 MG ONCE ONE 07/05 1900 DC 07/05 Sodium Chloride 250 ML IV 07/05 1959 1835 Results Last 48 Hours of Labs: Laboratory Tests 07/06 07/05 0645 1130 Chemistry Sodium (137 - 145 mmol/L) Pending 136 L Potassium (3.5 - 5.1 mmol/L) Pending 3.8 Chloride (98 - 107 mmol/L) Pending 104 Carbon Dioxide (22 - 30 mmol/L) Pending 21 L Anion Gap (5 - 16) Pending 11 BUN (7 - 17 mg/dL) Pending 26 H Creatinine (0.5 - 1.0 mg/dL) Pending 1.0 Estimated GFR (>60 ml/min) 53 L BUN/Creatinine Ratio (7 - 25 %) Pending 26.0 H Glucose (65 - 99 mg/dL) 266 H Calcium (8.4 - 10.2 mg/dL) 8.6 Magnesium (1.6 - 2.3 mg/dL) 1.7 Creatine Kinase (30 - 135 U/L) 102 Troponin I (< 0.11 ng/ml) < 0.01 TSH (0.270 - 4.200 uIU/mL) 1.330 Hematology CBC w Diff Pending WBC Pending RBC Pending Hgb Pending Hct Pending MCV Pending MCH Pending MCHC Pending RDW Pending Plt Count Pending MPV Pending Assessment/Plan Assessment/Plan 81 F POD 1 s/p L TKR complicated by new onset atrial fibrillation PT eval, WBAT Regular diet, d/c IVF Pain control prn, on Q pump ? metoprolol dose in setting of bradycardia DVT ppx - eliquis 2.5 mg BID F/u echo, stress test done as outpt Home meds on board D/c marlyn F/u labs Appreciate cardiology and medicine's involvement Will d/w Dr. Burgess Core Measures Venous Thromboembolism VTE Risk Factors Surgery No Mechanical VTE Prophylaxis d/t N/A MechProphylax Ordered No VTE Pharm Prophylaxis d/t NA PharmProphylax ordered
[2017-07-06 07:53] LABS: ABSOLUTE BASOPHIL COUNT 0 /CUMM (0.0-0.2); ABSOLUTE EOSINOPHIL COUNT 0 /CUMM (0.0-0.7); ABSOLUTE GRANULOCYTE CT 14.5 /CUMM (1.4-6.5); ABSOLUTE LYMPH COUNT 0.8 /CUMM (1.2-3.4); ABSOLUTE MONOCYTE COUNT 1.3 /CUMM (0.10-0.60); BASOPHIL % 0 % (0.0-2.0); EOSINOPHIL % 0 % (0-5); GRANULOCYTE % 87.4 % (42.2-75.2); HEMATOCRIT 32.8 % (37-47); MEAN CORPUSCULAR HGB 28.4 PG (27.0-31.0); MEAN CORPUSCULAR HGB CONC 33.2 G/DL (33.0-37.0); MEAN CORPUSCULAR VOLUME 85.7 FL (81.0-99.0); MEAN PLATELET VOLUME 8.3 FL (7.4-10.4); PLATELET COUNT 268 /CUMM (130-400); RED BLOOD CELL CT 3.83 /CUMM (4.20-5.40); WHITE BLOOD CELL COUNT 16.6 /CUMM (4.8-10.8)
[2017-07-06 08:11] VITALS: BP 120/72
--- NOTE | 2017-07-06 08:16 | PN- Medicine Consult ---
Dylan STINSON,[facility] 07/06/17 0816: Assessment/PlanMedical Consult Assessment/Plan Assessment: Ms. 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 Patient was admitted to telemetry floor from PACU after left knee replacement with new onset atrial fibrillation. Problem list 1-New onset atrial fibrillation chads2 vas2 score 4 points with 4.8% annual stroke risk--Converted back to sinus on 07/06 at 7:18 am 2-sinus bradycardia, Asymptomatic 3-Left total knee replacement POD#1 4-anemia Plan 1-New onset atrial fibrillation chads2 vas2 score 4 points with 4.8% annual stroke risk--Converted back to sinus on 07/06 at 7:18 am sinus bradycardia -Continue monitor on telemetry -Repeat BMP keep potassium above 4 and magnesium above 2 -TSH WNL -Agree with decreasing metoprolol to 12.5 twice daily with holding parameters heart rate less than 50 -Consider discontinuing blood pressure medication losartan and amlodipine given starting metoprolol with subsequent bradycardia and borderline blood pressure -Anticoagulation per cardiology Eliquis 2.5 twice daily to be started today -Echocardiogram pending report -Recommendation for d-dimer and bilateral lower extremity venous Doppler scan as patient was recently hypoactive because of left knee pain (blood clot can provoke new onset atrial fibrillation). I discussed this recommendation with the surgical PA on 07/05 and she will discuss it with her attending and ordering if he agrees. 2-Left total knee replacement POD#1 -PT evaluation and treat -Discontinue Eric catheter -Discontinue IV fluid -Encouraged oral intake -Pain medication per surgical team -Bowel regimen -Please cluster nursing intervention during the daytime and provide quite sleep at night to avoid hospital-acquired delirium 3-anemia -Consider obtaining iron studies, folic acid and vitamin B12 -Consider start ferrous sulfate 325 mg once daily -Keep hemoglobin above 8 -Guaiac all stools -DVT prophylaxis Alps and Eliquis Plan: As above Subjective Subjective: Patient was seen and examined this morning, she is alert oriented 3, she denied pain in the left knee, denied dizziness, blurry vision, chest pain, nausea or vomiting. She was able to move around without any warning symptoms. Eric in place. Review of Systems Constitutional: Reports: see HPI. Objective Last 24 Hrs of Vital Signs/I&O Vital Signs Date Time Temp Pulse Resp B/P B/P Pulse O2 O2 Flow FiO2 Mean Ox Delivery Rate 07/06 0819 48 120/72 / 0819 48 120/72 07/06 0818 48 120/72 07/06 0811 48 120/72 07/06 0800 Room Air 07/06 0621 97.5 49 12 108/68 93 Room Air 07/06 0430 97.8 70 16 108/74 100 Room Air 07/06 0145 97.8 64 20 114/74 98 Room Air 07/06 0000 Room Air 07/05 2249 97.7 72 19 118/84 94 07/05 2207 67 04 1956 97.8 98 18 110/80 95 07/05 1600 71 16 97 Room Air 07/05 1404 97.8 68 20 100/70 95 Room Air 07/05 1344 Room Air Intake & Output 07/06 1600 07/06 0800 07/06 0000 Intake Total 960 1499 Output Total 400 400 Balance 560 1099 Intake, IV 600 815 Intake, Oral 360 684 Output, Urine 400 400 Patient 77.593 kg Weight Physical Exam General Appearance: well developed/nourished, no apparent distress, alert, awake Head: atraumatic, normal appearance Ears, Nose, Throat: normal pharynx, normal ENT inspection, hearing grossly normal Neck: normal inspection, supple, full range of motion Cardiovascular: regular rate/rhythm Respiratory: normal breath sounds, chest non-tender, no respiratory distress Abdomen: normal bowel sounds, soft, non-tender Back: normal inspection, normal range of motion Extremities: normal inspection, normal capillary refill, normal range of motion, no edema Neurologic/Psychiatric: no motor/sensory deficits, awake, alert, oriented x 3 Current Medications: Current Medications Sig/Argelia Start time Last Medication Dose Route Stop Time Status Admin Acetaminophen 1,000 MG Q6H 07/07 0415 AC 07/07 N/A 1 UNIT IV 07/07 Amlodipine Besylate 5 MG DAILY 07/06 09 AC PO Apixaban 2.5 MG BID 07/06 09 AC 07/06 PO 205 Dextrose/Lactated 1,000 ML Q13H 07/05 1200 AC 07/07 Ringer's IV 0414 Docusate Sodium 100 MG BID PRN 07/06 0900 AC PO Estradiol 0.5 MG DAILY 07/06 0900 AC 07/06 PO 0818 Furosemide 20 MG DAILY PRN 07/05 0945 AC PO Lorazepam 1 MG Q4P PRN 07/06 2030 AC 07/06 IV 2044 Losartan Potassium 50 MG DAILY 07/06 0900 AC PO Melatonin 5 MG AT BEDTIME 07/06 2200 AC PO Metoprolol Tartrate 12.5 MG BID 07/06 2100 AC 07/06 PO 205 Metoprolol Tartrate 25 MG BID 07/05 2100 DC 07/05 PO 2207 Morphine Sulfate 2 MG Q3P PRN 07/05 1200 AC 07/06 IV 1339 Morphine Sulfate 4 MG Q3P PRN 07/05 1200 AC IV Ondansetron HCl 4 MG Q6P PRN 07/05 1200 AC IV Oxycodone/ 1 TAB Q4P PRN 07/05 1200 AC 07/06 Acetaminophen PO 1143 Oxycodone/ 2 TAB Q4P PRN 07/05 1200 AC Acetaminophen PO Patient Medication 1 ED ONE ONE 07/06 1900 NH Teaching ED 07/06 1901 Patient Medication 1 ED ONE ONE 07/06 1845 NH Teaching ED 07/06 1846 Polyethylene Glycol 17 GM DAILY NEEDED PRN 07/05 1200 AC PO Ropivacaine 500 ML ONCE ONE 07/05 1030 AC ON-Q Ball 1 BAG INJ 07/07 1229 Senna/Docusate Sodium 2 TAB DAILY PRN 07/06 0900 AC PO Trazodone HCl 50 MG .STK-MED ONE 07/06 2010 DC PO 07/07 2011 Trazodone HCl 50 MG AT BEDTIME NEED.. 07/05 2130 AC 07/06 PO 2053 Results Last 24 Hrs Lab/Zeyad Results: 11 Edward Alejandro MD 07/06/17 2225: Attending MD Review Statement Attending Sign Off Attending Cosign Statement: I have: examined this patient, reviewed avalbl EMR data, discussd w/resident/PA/ HOME HEALTH CARE COORDINATOR, discussed mgmt plan w/edouard, discussed mgmt plan w/pt, agreed w/resident/PA/HOME HEALTH CARE COORDINATOR , amended to note. Other Findings: The patient was seen and discussed with resident. Increased confusion this afternoon consistent with mild delirium due to narcotics, etc. Would try to minimize narcotics if possible. Started on anti-coagulation.
--- NOTE | 2017-07-06 13:09 | PN- Cardiology ---
Subjective Subjective: Patient spontaneously converted to SR this morning around 7:30. Objective Vital Signs and I&Os Vital Signs Date Time Temp Pulse Resp B/P B/P Pulse O2 O2 Flow FiO2 Mean Ox Delivery Rate 07/06 0819 48 120/72 07/06 0819 48 120/72 07/06 0818 48 120/72 07/06 0811 48 120/72 07/06 0800 Room Air 07/06 0621 97.5 49 12 108/68 93 Room Air 07/06 0430 97.8 70 16 108/74 100 Room Air 07/06 0145 97.8 64 20 114/74 98 Room Air 07/06 0000 Room Air 07/05 2249 97.7 72 19 118/84 94 07/05 2207 67 04 1956 97.8 98 18 110/80 95 07/05 1600 71 16 97 Room Air 07/05 1404 97.8 68 20 100/70 95 Room Air 07/05 1344 Room Air Intake & Output 07/06 1600 07/06 0807/06 0000 07/05 1600 07/05 0800 07/05 0000 Intake Total 960 1499 75 Output Total 400 400 Balance 560 1099 75 Intake, IV 600 815 75 Intake, Oral 360 684 Output, Urine 400 400 Patient 171 lb 170 lb Weight Weight Bed scale Measurement Method Physical Exam General Appearance: no apparent distress, alert, awake Neck: supple, trachea mid line (no jvd) Respiratory: normal breath sounds, no respiratory distress, lungs clear Cardiovascular: regular rate/rhythm (1/6 systolic ejection murmur) Abdomen: normal bowel sounds, soft, non-tender Extremities: normal capillary refill (mild ankle edema l>R) Current Medications: Current Medications Sig/Argelia Start time Last Medication Dose Route Stop Time Status Admin Amlodipine Besylate 5 MG DAILY 07/06 899 AC PO Apixaban 2.5 MG BID 07/06 899 AC 07/06 PO 0818 Celecoxib 400 MG DAILY 07/06 899 CAN PO Dextrose/Lactated 1,000 ML Q13H 07/05 1200 AC 07/06 Ringer's IV 0540 Docusate Sodium 100 MG BID PRN 07/06 899 AC PO Docusate Sodium 100 MG DAILY NEEDED PRN 07/05 1200 DC PO Estradiol 0.5 MG DAILY 07/06 899 AC 07/06 PO 0818 Furosemide 20 MG DAILY PRN 07/05 0945 AC PO Losartan Potassium 50 MG DAILY 07/06 0900 AC PO Magnesium Oxide 400 MG ONE ONE 07/05 2014 DC 07/05 PO 07/06 2015 220 Metoprolol Tartrate 12.5 MG BID 07/06 2100 AC PO Metoprolol Tartrate 25 MG BID 07/05 2100 DC 07/05 PO 2207 Morphine Sulfate 2 MG Q3P PRN 07/05 1200 AC 07/06 IV 0101 Morphine Sulfate 4 MG Q3P PRN 07/05 1200 AC IV Ondansetron HCl 4 MG Q6P PRN 07/05 1200 AC IV Oxycodone/ 1 TAB Q4P PRN 07/05 1200 AC 07/06 Acetaminophen PO 1143 Oxycodone/ 2 TAB Q4P PRN 07/05 1200 AC Acetaminophen PO Polyethylene Glycol 17 GM DAILY NEEDED PRN 07/05 1200 AC PO Potassium Chloride 40 MEQ ONCE ONE 07/05 2014 DC 07/05 PO 07/05 Ropivacaine 500 ML ONCE ONE 07/05 1030 AC ON-Q Ball 1 BAG INJ 07/07 1229 Senna/Docusate Sodium 2 TAB DAILY PRN 07/06 09 AC PO Senna/Docusate Sodium 2 TAB AT BEDTIME NEED.. 07/05 1200 DC PO Trazodone HCl 50 MG AT BEDTIME NEED.. 07/05 213 AC 07/05 PO 220 Vancomycin HCl 1,000 MG ONCE ONE 07/05 1900 DC 07/05 Sodium Chloride 250 ML IV 07/05 195 1835 Results Last 48 Hrs of Labs/Mics: Laboratory Tests 07/06/17 0645: Anion Gap 8, Estimated GFR 48 L, BUN/Creatinine Ratio 20.0, Hemoglobin A1c 5.7, CBC w Diff MAN DIFF ORDERED, RBC 3.83 L, MCV 85.7, MCH 28.4, MCHC 33.2, RDW 15.0 H, MPV 8.3, Gran % 87.4 H, Lymphocytes % 4.9 L, Monocytes % 7.7, Eosinophils % 0, Basophils % 0, Absolute Granulocytes 14.5 H, Absolute Lymphocytes 0.8 L, Absolute Monocytes 1.3 H, Absolute Eosinophils 0, Absolute Basophils 0, Platelet Estimate VERIFIED BY SMEAR, Poikilocytosis 1+, Anisocytosis 1+, Ovalocytes 1+, Sampson Cells 1+ 07/05/17 1130: Anion Gap 11, Estimated GFR 53 L, BUN/Creatinine Ratio 26.0 H, Glucose 266 H, Calcium 8.6, Magnesium 1.7, Creatine Kinase 102, Troponin I < 0.01, TSH 1.330 Assessment/Plan Assessment/Plan Reduce metoprolol to 12.5 mg PO bid (omit this morning's dose). If sustained bradycardia <60 persists, entirely stop metoprolol and oberve. Continue telemetry? Yes
[2017-07-06 13:37] VITALS: BP 122/70
--- NOTE | 2017-07-06 17:33 | ECHOCARDIOGRAM REPORT ---
DONALD TOLLIVER Age: 81 : 1935 Gender: F Exam Date: 07/05/2017 16:39 Exam Location: [address] Ht (in): 61 Wt (lb): 160 BSA: 1.79 BP: 100 / 70 Ordering Physician: Abril Carrero PA Referring Physician: Rocky Fitzpatrick MD Technologist: Eli Johnson [facility] Room Number: [id number] Indications: AFIB/FLUTTER Rhythm: Atrial fibrillation Technical Quality: fair FINDINGS Left Ventricle Mild concentric LVH. No regional wall motion abnormality. Diastolic function not assessed due to atrial fibrillation. LVEF estimated at 60%. Right Ventricle Grossly normal dimensions and function. Right Atrium grossly normal in size. Left Atrium Mildly enlarged left atrium. Mitral Valve Mild mitral annulus calcification. Trace MR. Aortic Valve Tricuspid aortic valve with trace aortic regurgitation. No evidence of aortic stenosis. Tricuspid Valve Normal tricuspid valve morphology. Mild TR. RVSP estimated at 30 mmHg. Pulmonic Valve Trace PI. Pericardium No pericardial effusion. Great Vessels Mildly dilated proximal ascending aorta. CONCLUSIONS Mild concentric LVH. No regional wall motion abnormality. LVEF estimated at 60%. Diastolic function not assessed due to atrial fibrillation. Mildly enlarged left atrium. Mild mitral annulus calcification. Trace MR. Tricuspid aortic valve with trace aortic regurgitation. No evidence of aortic stenosis. RVSP estimated at 30 mmHg. Mildly dilated proximal ascending aorta. Rocky Fitzpatrick M.D. (Electronically Signed) Final Date: 06 Jul 2017 17:32 MEASUREMENTS (Male / Female) Normal Values 2D ECHO LV Diastolic Diameter PLAX 4.4 cm 4.2 - 5.9 / 3.9 - 5.3 cm LV Systolic Diameter PLAX 2.8 cm 2.1 - 4.0 cm LV Fractional Shortening PLAX 36.4 % 25 - 46 % LV Ejection Fraction 2D Teich 66.3 % IVS Diastolic Thickness 1.2 cm LVPW Diastolic Thickness 1.1 cm LV Relative Wall Thickness 0.5 RV Internal Dim ED PLAX 2.6 cm 1.9 - 3.8 cm LVOT Diameter 1.9 cm Aortic Root Diameter 3.4 cm LA Systolic Diameter LX 3.7 cm 3.0 - 4.0 / 2.7 - 3.8 cm LA Volume 38.0 cm 18 - 58 / 22 - 52 cm Ascending Aorta Diameter 4.0 cm DOPPLER AV Peak Velocity 124.0 cm/s AV Peak Gradient 6.2 mmHg AV Mean Velocity 82.3 cm/s AV Mean Gradient 3.0 mmHg AV Velocity Time Integral 26.5 cm LVOT Peak Velocity 97.8 cm/s LVOT Peak Gradient 3.8 mmHg LVOT Mean Velocity 59.2 cm/s LVOT Mean Gradient 2.0 mmHg LVOT Velocity Time Integral 20.2 cm LVOT Stroke Volume 57.3 cm AV Area Cont Eq vti 2.2 cm AV Area Cont Eq pk 2.2 cm MV Peak Velocity 118.0 cm/s MV Peak Gradient 5.6 mmHg MV Mean Velocity 61.5 cm/s MV Mean Gradient 2.0 mmHg Mitral E Point Velocity 111.0 cm/s MV PHT Velocity 124.0 cm/s MV Deceleration Walton 582.0 cm/s MV Pressure Half Time 63.9 ms MV Area PHT 3.4 cm MV Deceleration Time 197.0 ms TR Peak Velocity 296.0 cm/s TR Peak Gradient 35.0 mmHg Right Atrial Pressure 5.0 mmHg Pulmonary Artery Systolic Pressu 40.0 mmHg Right Ventricular Systolic Press 40.0 mmHg PV Peak Velocity 82.8 cm/s PV Peak Gradient 2.7 mmHg PV Mean Velocity 50.4 cm/s PV Mean Gradient 1.0 mmHg PV Velocity Time Integral 17.8 cm LV E' Lateral Velocity 11.0 cm/s Mitral E to LV E' Lateral Ratio 10.1 LV E' Septal Velocity 9.8 cm/s Mitral E to LV E' Septal Ratio 11.3
[2017-07-06 22:00] VITALS: BP 140/80
[2017-07-07 06:38] VITALS: BP 144/90
--- NOTE | 2017-07-07 07:45 | PN- Medicine Consult ---
Dylan STINSON,[facility] 07/07/17 0745: Assessment/PlanMedical Consult Assessment/Plan Assessment: Ms. 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 Patient was admitted to telemetry floor from PACU after left knee replacement with new onset atrial fibrillation. Problem list 1-New onset atrial fibrillation chads2 vas2 score 4 points with 4.8% annual stroke risk--Converted back to sinus on 07/06 at 7:18 am---CONTINUE to BE in NSR 2-sinus bradycardia, Asymptomatic 3-Left total knee replacement POD#2 4-anemia Plan 1-New onset atrial fibrillation chads2 vas2 score 4 points with 4.8% annual stroke risk--Converted back to sinus on 07/06 at 7:18 am sinus bradycardia -Continue monitor on telemetry -Repeat BMP -TSH WNL -Continue metoprolol to 12.5 twice daily with holding parameters heart rate less than 50--- patient continues to be in normal sinus rhythm after his heart rate 50 Asymptomatic -Contacted Dr. Smith regarding blood pressure home medications losartan 50 mg and amlodipine 5 mg. Patient systolic blood pressure was running in 120s yesterday this morning 140/90. Her recommendation is to decrease amlodipine to 2.5 mg and continue losartan 50 mg and metoprolol 12.5 mg. I updated surgical PA Latha and the nurse Adelina about the recommendation. -Continue Eliquis 2.5 twice daily to be started today -Echocardiogram report reviewed. LVEF estimated at 60% with no regional wall motion abnormality -Recommendation for d-dimer and bilateral lower extremity venous Doppler scan as patient was recently hypoactive because of left knee pain (blood clot can provoke new onset atrial fibrillation). I discussed this recommendation with the surgical PA on 07/05 and she will discuss it with her attending and ordering if he agrees. 2-Left total knee replacement POD#1 -PT evaluation and treat -Discontinue IV fluid -Encouraged oral intake -Pain medication per surgical team--please avoid narcotics and Ativan as patient had confusion yesterday that required Hole monitor -Aggressive bowel regimen -Please cluster nursing intervention during the daytime and provide quite sleep at night to avoid hospital-acquired delirium 3-anemia -Consider obtaining iron studies, folic acid and vitamin B12 -Consider start ferrous sulfate 325 mg once daily -Keep hemoglobin above 8 -Guaiac all stools -DVT prophylaxis Alps and Eliquis Plan: As above Subjective Subjective: Patient was seen and examined this morning. Room changed to 182. She is alert oriented 3 able to give me clear history however she was so anxious and easy to distract. She could not participate well in PT because of easy distraction. She cried because she wants to STR and have intensive therapy and then go back home to her family. Patient was reassured that we are waiting for cardiology to clear her and if Dr. Vargas orthopedic surgeon okay with discharge she will be leaving soon. By the end of the discussion patient felt much relieved and she was smiling. Review of Systems Constitutional: Reports: see HPI. Objective Last 24 Hrs of Vital Signs/I&O Vital Signs Date Time Temp Pulse Resp B/P B/P Pulse O2 O2 Flow FiO2 Mean Ox Delivery Rate 07/07 0638 97.4 73 18 144/90 92 Room Air 07/06 2200 98.1 78 22 140/80 97 Room Air 07/06 2054 71 140/80 07/06 1440 Room Air 07/06 1420 Room Air 07/06 1337 97.9 58 18 122/70 94 Room Air Intake & Output 07/07 1600 07/07 0800 07/07 0000 Intake Total 600 887.5 Output Total 1300 300 Balance -700 587.5 Intake, IV 600 535.5 Intake, Oral 352 Output, Urine 1300 300 Patient 80.286 kg Weight Weight Bed scale Measurement Method Physical Exam General Appearance: well developed/nourished, no apparent distress, alert, awake , anxious Head: atraumatic, normal appearance Ears, Nose, Throat: normal pharynx, normal ENT inspection, hearing grossly normal Neck: normal inspection, supple, full range of motion Cardiovascular: regular rate/rhythm Respiratory: normal breath sounds, chest non-tender, no respiratory distress Abdomen: normal bowel sounds, soft, non-tender Back: normal inspection, normal range of motion Extremities: normal inspection, normal capillary refill, normal range of motion, no calf tenderness right LE trace pedal edema Neurologic/Psychiatric: no motor/sensory deficits, awake, alert, oriented x 3 Current Medications: Current Medications Sig/Argelia Start time Last Medication Dose Route Stop Time Status Admin Acetaminophen 1,000 MG Q6H 07/07 0415 AC 07/07 N/A 1 UNIT IV 07/07 2229 0414 Amlodipine Besylate 2.5 MG DAILY 07/08 899 AC PO Amlodipine Besylate 5 MG DAILY 07/06 09 DC PO Apixaban 2.5 MG BID 07/06 09 AC 07/07 PO 0850 Dextrose/Lactated 1,000 ML Q13H 07/05 1200 AC 07/07 Ringer's IV 0414 Docusate Sodium 100 MG BID PRN 07/06 09 AC PO Estradiol 0.5 MG DAILY 07/06 09 AC 07/07 PO 0850 Furosemide 20 MG DAILY PRN 07/05 0945 AC PO Lorazepam 1 MG Q4P PRN 07/06 2030 DC 07/06 IV 2044 Losartan Potassium 50 MG DAILY 07/06 899 AC PO Melatonin 5 MG AT BEDTIME 07/06 2200 AC PO Metoprolol Tartrate 12.5 MG BID 07/06 2100 AC 07/06 PO 2054 Morphine Sulfate 2 MG Q3P PRN 07/05 1200 AC 07/06 IV 1339 Morphine Sulfate 4 MG Q3P PRN 07/05 1200 AC IV Ondansetron HCl 4 MG Q6P PRN 07/05 1200 AC IV Oxycodone/ 1 TAB Q4P PRN 07/05 1200 AC 07/06 Acetaminophen PO 1143 Oxycodone/ 2 TAB Q4P PRN 07/05 1200 AC Acetaminophen PO Patient Medication 1 ED ONE ONE 07/06 1900 CA Teaching ED 07/06 1901 Patient Medication 1 ED ONE ONE 07/06 1845 CA Teaching ED 07/06 1846 Polyethylene Glycol 17 GM DAILY NEEDED PRN 07/05 1200 AC PO Ropivacaine 500 ML ONCE ONE 07/05 1030 AC ON-Q Ball 1 BAG INJ 07/07 1229 Senna/Docusate Sodium 2 TAB DAILY PRN 07/06 0900 AC PO Trazodone HCl 50 MG .STK-MED ONE 07/06 2010 DC PO 07/07 2011 Trazodone HCl 50 MG AT BEDTIME NEED.. 07/05 2130 AC 07/06 PO 2054 Results Last 24 Hrs Lab/Zeyad Results: 11 Edward Alejandro MD 07/07/17 1410: Attending MD Review Statement Attending Sign Off Attending Cosign Statement: I have: examined this patient, reviewed avalbl EMR data, discussd w/resident/PA/ CHRONIC DISEASE MANAGER, discussed mgmt plan w/edouard, discussed mgmt plan w/pt, agreed w/resident/PA/CHRONIC DISEASE MANAGER , amended to note. Other Findings: The patient was seen and discussed with house staff and family (son). Post op delirium noted and improved today. Agree with above suggestions in resident note. Plan is for STR.
--- NOTE | 2017-07-07 09:48 | PN- Orthopedic ---
See Addendum Subjective Subjective: Delirius overnight, required a sitter. Is unaware of cardiac events leading to telemetry, feels she was taken here against her will, appears to have residual confusion. Unable to obtain further subjective assessment. Objective Vital Signs and I&Os Vital Signs Date Time Temp Pulse Resp B/P B/P Pulse O2 O2 Flow FiO2 Mean Ox Delivery Rate 07/07 0638 97.4 73 18 144/90 92 Room Air 07/06 2200 98.1 78 22 140/80 97 Room Air 07/06 2054 71 140/80 07/06 1440 Room Air 07/06 1420 Room Air 07/06 1337 97.9 58 18 122/70 94 Room Air Intake & Output 07/07 1600 07/07 0807/07 0000 07/06 1600 07/06 0800 07/06 0000 Intake Total 600 887.5 9274 351 3754 Output Total 1300 300 200 400 400 Balance -700 587.5 639 707 7619 Intake, IV 600 535.5 470 600 815 Intake, Oral 352 660 360 684 Output, Urine 1300 300 200 400 400 Patient 177 lb 171 lb Weight Weight Bed scale Measurement Method Physical Exam: General: demented, unaware of place and time Cardiac: RRR, s1s2 Pulm: Non-labored respiratory effort Extremities: Moves all extremities, dressing to left knee dry and intact, bialteral calves soft and non-tender. Assessment/Plan Assessment/Plan This is a 81 year old female, POD 2, s/p L TKR. Post op course complicated by new onset afib, converted with metoprolol. Experienced post coversion sinus dominik and hypotension, meds adjusted per cardiology recommendations. -decrease po amlodipine to 2.5 -continue losartan 50 daily -continue metoprolol 12.5 bid -ativan dc'd due to confusion, will consider haldol if agitated Activity: WBAT Dressing: Daily dry DVT ppx: eliquis 2.5 bid Core Measures Venous Thromboembolism VTE Risk Factors Surgery No Mechanical VTE Prophylaxis d/t N/A MechProphylax Ordered No VTE Pharm Prophylaxis d/t NA PharmProphylax ordered
--- NOTE | 2017-07-07 09:54 | PN- Cardiology ---
Subjective Subjective: Remains in sinus rhythm since spontaneous conversion yesterday. HR 70-80 this morning, 50-70 overnight. No complaints, no chest pains, no dizziness. Walking to the restroom with help. Objective Vital Signs and I&Os Vital Signs Date Time Temp Pulse Resp B/P B/P Pulse O2 O2 Flow FiO2 Mean Ox Delivery Rate 07/07 0538 97.4 73 18 144/90 92 Room Air 07/06 2200 98.1 78 22 140/80 97 Room Air 07/06 2054 71 140/80 07/06 1440 Room Air 07/06 1420 Room Air 07/06 1337 97.9 58 18 122/70 94 Room Air Intake & Output 07/07 0000 07/06 1600 07/06 0000 Intake Total 600 887.5 2381 977 6362 Output Total 1300 300 200 400 400 Balance -700 587.5 866 511 3555 Intake, IV 600 535.5 470 600 815 Intake, Oral 352 660 360 684 Output, Urine 1300 300 200 400 400 Patient 177 lb 171 lb Weight Weight Bed scale Measurement Method Physical Exam General Appearance: no apparent distress, alert, awake Neck: supple, trachea mid line (no jvd) Respiratory: normal breath sounds, no respiratory distress, lungs clear Cardiovascular: regular rate/rhythm (2/6 systolic ejection murmur L) Extremities: normal capillary refill (mild edema left ankle>right) Current Medications: Current Medications Sig/Argelia Start time Last Medication Dose Route Stop Time Status Admin Acetaminophen 1,000 MG Q6H 07/07 0415 AC 07/07 N/A 1 UNIT IV 07/07 Amlodipine Besylate 2.5 MG DAILY 07/08 899 AC PO Amlodipine Besylate 5 MG DAILY 07/06 899 DC PO Apixaban 2.5 MG BID 07/06 899 AC 07/07 PO 0850 Dextrose/Lactated 1,000 ML Q13H 07/05 1200 AC 07/07 Ringer's IV 041 Docusate Sodium 100 MG BID PRN 07/06 899 AC PO Estradiol 0.5 MG DAILY 07/06 899 AC 07/07 PO 0850 Furosemide 20 MG DAILY PRN 07/05 0845 AC PO Lorazepam 1 MG Q4P PRN 07/06 2030 DC 07/06 IV 204 Losartan Potassium 50 MG DAILY 07/06 899 AC PO Melatonin 5 MG AT BEDTIME 07/060 AC PO Metoprolol Tartrate 12.5 MG BID 07/06 2100 AC 07/06 PO 2053 Morphine Sulfate 2 MG Q3P PRN 07/05 1200 AC 07/06 IV 1339 Morphine Sulfate 4 MG Q3P PRN 07/05 1200 AC IV Ondansetron HCl 4 MG Q6P PRN 07/05 1200 AC IV Oxycodone/ 1 TAB Q4P PRN 07/05 1200 AC 07/06 Acetaminophen PO 1143 Oxycodone/ 2 TAB Q4P PRN 07/05 1200 AC Acetaminophen PO Patient Medication 1 ED ONE ONE 07/06 1900 ME Teaching ED 07/06 1901 Patient Medication 1 ED ONE ONE 07/06 1845 [facility] ED 07/06 1846 Polyethylene Glycol 17 GM DAILY NEEDED PRN 07/05 1200 AC PO Ropivacaine 500 ML ONCE ONE 07/05 1030 AC ON-Q Ball 1 BAG INJ 07/07 1229 Senna/Docusate Sodium 2 TAB DAILY PRN 07/06 09 AC PO Trazodone HCl 50 MG .STK-MED ONE 07/06 2010 DC PO 07/07 2011 Trazodone HCl 50 MG AT BEDTIME NEED.. 07/05 2130 AC 07/06 PO 2053 Results Last 48 Hrs of Labs/Mics: Laboratory Tests 07/06/17 0645: Anion Gap 8, Estimated GFR 48 L, BUN/Creatinine Ratio 20.0, Hemoglobin A1c 5.7, CBC w Diff MAN DIFF ORDERED, RBC 3.83 L, MCV 85.7, MCH 28.4, MCHC 33.2, RDW 15.0 H, MPV 8.3, Gran % 87.4 H, Lymphocytes % 4.9 L, Monocytes % 7.7, Eosinophils % 0, Basophils % 0, Absolute Granulocytes 14.5 H, Absolute Lymphocytes 0.8 L, Absolute Monocytes 1.3 H, Absolute Eosinophils 0, Absolute Basophils 0, Platelet Estimate VERIFIED BY SMEAR, Poikilocytosis 1+, Anisocytosis 1+, Ovalocytes 1+, Sampson Cells 1+ 07/05/17 1130: Anion Gap 11, Estimated GFR 53 L, BUN/Creatinine Ratio 26.0 H, Glucose 266 H, Calcium 8.6, Magnesium 1.7, Creatine Kinase 102, Troponin I < 0.01, TSH 1.330 Assessment/Plan Assessment/Plan New onset atrial fibrillation immediately post operatively of total left knee replacement. Spontaneous conversion to SR. CHADS-Vasc 4. Eliquis started at reduced dose yesterday and well tolerated thus far. Hypertension. I would reduce norvasc to 2.5 mg daily in the post op setting to avoid orthostatic hypotension. I would maintain losartan dose unchanged. I have no objection to discharging the patient and would gladly follow her as an outpatient. Continue telemetry? Yes
--- NOTE | 2017-07-07 11:55 | RADIOLOGY REPORT ---
EXAMINATION: XR KNEE, LEFT CLINICAL INFORMATION: Status post left total knee arthroplasty. COMPARISON: Knee films dated 06/23/2016. TECHNIQUE: Two views of the left knee. FINDINGS: The patient is status post total left knee arthroplasty with the prosthetic components anatomic in alignment and well seated within the apache bone. No hardware failure or apache bone fracture is seen. Trace suprapatellar knee joint effusion is noted. No joint calcifications is seen. IMPRESSION: No evidence of hardware failure or apache bone fracture after total left knee arthroplasty. Trace suprapatellar knee joint effusion.
[2017-07-07 14:13] VITALS: BP 132/84
[2017-07-07 22:28] VITALS: BP 136/86
[2017-07-08 06:53] VITALS: BP 140/88
--- NOTE | 2017-07-08 07:39 | PN- Orthopedic ---
Subjective Subjective: pt sitting in chair, still somewhat agitated but seems a little bit better today. Knows she is going to rehab today. Denies pain, only taking tylenol. ambulating with PT. unreliable historian Objective Vital Signs and I&Os Vital Signs Date Time Temp Pulse Resp B/P B/P Pulse O2 O2 Flow FiO2 Mean Ox Delivery Rate 07/08 0553 97.7 61 20 140/88 94 Room Air 07/07 2228 98.2 63 20 136/86 94 07/07 2126 64 128/84 07/07 1600 98 Room Air 07/07 1413 98.2 63 18 132/84 98 Room Air 07/07 1114 140/70 07/07 1114 140/70 Intake & Output 07/08 0000 07/07 1600 07/07 0807/07 0000 07/06 1600 Intake Total 380 580 650 600 887.5 1130 Output Total 600 1200 1100 1300 300 200 Balance -220 -620 -450 -700 587.5 930 Intake, IV 200 250 600 535.5 470 Intake, Oral 380 380 400 352 660 Output, Urine 600 1200 1100 1300 300 200 Patient 177 lb Weight Weight Bed scale Measurement Method Physical Exam: gen- NAD resp- clear cardiac- RRR abd- ND, soft, NT ext- left knee dressing changed, incision clean and dry, no signs of infection. covered with clean dry dressing and connor-wrap. calves are soft, nontender. 2+ DP pulse bilaterally. distal sensory and motor function intact. Current Medications: Current Medications Sig/Argelia Start time Last Medication Dose Route Stop Time Status Admin Acetaminophen 1,000 MG Q6H 07/07 414 DC 07/07 N/A 1 UNIT IV 07/07 Amlodipine Besylate 2.5 MG DAILY 07/08 899 AC PO Amlodipine Besylate 5 MG DAILY 07/06 899 DC PO Apixaban 2.5 MG BID 07/06 899 AC 07/07 PO 2125 Dextrose/Lactated 1,000 ML Q13H 07/05 1200 DC 07/07 Ringer's IV 0414 Docusate Sodium 100 MG BID PRN 07/06 09 AC PO Estradiol 0.5 MG DAILY 07/06 899 AC 07/07 PO 0850 Furosemide 20 MG DAILY PRN 07/05 0945 AC PO Lorazepam 1 MG Q4P PRN 07/06 2030 DC 07/06 IV 2044 Losartan Potassium 50 MG DAILY 07/06 0900 AC 07/07 PO 1114 Melatonin 5 MG AT BEDTIME 07/06 2200 AC 07/07 PO 212 Metoprolol Tartrate 12.5 MG BID 07/06 2100 AC 07/07 PO 2126 Morphine Sulfate 2 MG Q3P PRN 07/05 1200 DC 07/06 IV 1339 Morphine Sulfate 4 MG Q3P PRN 07/05 1200 DC IV Ondansetron HCl 4 MG Q6P PRN 07/05 1200 AC IV Oxycodone/ 1 TAB Q4P PRN 07/05 1200 DC 07/06 Acetaminophen PO 1143 Oxycodone/ 2 TAB Q4P PRN 07/05 1200 DC Acetaminophen PO Polyethylene Glycol 17 GM DAILY NEEDED PRN 07/05 1200 AC PO Ropivacaine 500 ML ONCE ONE 07/05 1030 DC ON-Q Ball 1 BAG INJ 07/07 1229 Senna/Docusate Sodium 2 TAB DAILY PRN 07/06 0900 AC PO Tramadol HCl 50 MG Q6P PRN 07/07 1730 AC PO Trazodone HCl 50 MG AT BEDTIME NEED.. 07/05 2130 DC 07/06 PO 2053 Results Last 48 Hours of Labs: Laboratory Tests 07/08 07/07 0654 1000 Chemistry Sodium (137 - 145 mmol/L) Pending 140 Potassium (3.5 - 5.1 mmol/L) Pending 4.4 Chloride (98 - 107 mmol/L) Pending 103 Carbon Dioxide (22 - 30 mmol/L) Pending 26 Anion Gap (5 - 16) Pending 11 BUN (7 - 17 mg/dL) Pending 22 H Creatinine (0.5 - 1.0 mg/dL) Pending 1.1 H Estimated GFR (>60 ml/min) 48 L BUN/Creatinine Ratio (7 - 25 %) Pending 20.0 Hematology CBC w Diff Pending WBC Pending RBC Pending Hgb Pending Hct Pending MCV Pending MCH Pending MCHC Pending RDW Pending Plt Count Pending MPV Pending Assessment/Plan Assessment/Plan This is a 81 year old female, POD 3, s/p L TKR. Post op course complicated by new onset afib, converted with metoprolol. Experienced post coversion sinus dominik and hypotension, meds adjusted per cardiology recommendations. post-op delerium, likely due to narcotics which have been stopped. -continue amlodipine to 2.5 -continue losartan 50 daily -continue metoprolol 12.5 bid -consider haldol if agitated again no narcotics- pain management with tylenol Activity: WBAT Dressing: Daily dry DVT ppx: eliquis 2.5 bid DC planning- DC to STR today FU with dr Solomon in 10 days and FU with cardiology Core Measures Venous Thromboembolism VTE Risk Factors Surgery No Mechanical VTE Prophylaxis d/t N/A MechProphylax Ordered No VTE Pharm Prophylaxis d/t NA PharmProphylax ordered
[2017-07-08 08:00] LABS: ABSOLUTE BASOPHIL COUNT 0 /CUMM (0.0-0.2); ABSOLUTE EOSINOPHIL COUNT 0.4 /CUMM (0.0-0.7); ABSOLUTE GRANULOCYTE CT 6.6 /CUMM (1.4-6.5); ABSOLUTE LYMPH COUNT 1.3 /CUMM (1.2-3.4); ABSOLUTE MONOCYTE COUNT 0.7 /CUMM (0.10-0.60); BASOPHIL % 0.5 % (0.0-2.0); GRANULOCYTE % 72.7 % (42.2-75.2); HEMATOCRIT 33.1 % (37-47); MEAN CORPUSCULAR HGB 28.5 PG (27.0-31.0); MEAN CORPUSCULAR HGB CONC 33.6 G/DL (33.0-37.0); MEAN CORPUSCULAR VOLUME 84.7 FL (81.0-99.0); PLATELET COUNT 271 /CUMM (130-400); RBC DISTRIBUTION WIDTH 15.2 % (11.5-14.5); RED BLOOD CELL CT 3.91 /CUMM (4.20-5.40)
[2017-07-08] MEDS ORDERED: ELIQUIS2.5 M1 PO (08:03)
[2017-07-08] MEDS ORDERED: NORVASC2.5 M1 PO (08:03)
[2017-07-08] MEDS ORDERED: METOPROLOL TART25 M1 PO (08:03)
[2017-07-08] MEDS ORDERED: TYLENOL EXTRA500 M2 PO (08:03)
--- NOTE | 2017-07-08 08:07 | PN- Medicine Consult ---
Dylan STINSON,[facility] 07/08/17 0807: Assessment/PlanMedical Consult Assessment/Plan Assessment: Ms. 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 Patient was admitted to telemetry floor from PACU after left knee replacement with new onset atrial fibrillation. Problem list 1-New onset atrial fibrillation chads2 vas2 score 4 points with 4.8% annual stroke risk--Converted back to sinus on 07/06 at 7:18 am---CONTINUE to BE in NSR 2-sinus bradycardia, Asymptomatic 3-Left total knee replacement POD#3 4-anemia Plan 1-New onset atrial fibrillation chads2 vas2 score 4 points with 4.8% annual stroke risk--Converted back to sinus on 07/06 at 7:18 am sinus bradycardia -Continue metoprolol to 12.5 twice daily with holding parameters heart rate less than 50 -Continue Eliquis 2.5 twice daily -Continue losartan 50 and amlodipine 2.5 -Echocardiogram report reviewed. LVEF estimated at 60% with no regional wall motion abnormality 2-Left total knee replacement POD#1 -PT evaluation and treat -Pain medication per surgical team--please avoid narcotics and Ativan as patient had confusion yesterday that required Hole monitor -Aggressive bowel regimen -Please cluster nursing intervention during the daytime and provide quite sleep at night to avoid hospital-acquired delirium -Patient will be discharged today to stay 3-anemia -Consider obtaining iron studies, folic acid and vitamin B12 -Consider start ferrous sulfate 325 mg once daily -Keep hemoglobin above 8 -Guaiac all stools -DVT prophylaxis Alps and Eliquis Plan: As above Subjective Subjective: Patient was seen and examined this morning, vital signs are stable, continue to be in normal sinus rhythm with heart rate 60-70. Patient is alert oriented 3, denied any chest pain or palpitation. She is so excited to be discharged today to a short-term rehabilitation. Review of Systems Constitutional: Reports: see HPI. Objective Last 24 Hrs of Vital Signs/I&O Vital Signs Date Time Temp Pulse Resp B/P B/P Pulse O2 O2 Flow FiO2 Mean Ox Delivery Rate 07/08 1039 97.7 64 20 140/88 07/08 0805 64 140/88 05/03 0805 64 140/88 07/08 0804 64 140/88 / 0800 94 Room Air 07/08 0653 97.7 61 20 140/88 94 Room Air 07/07 2228 98.2 63 20 136/86 94 / 2126 64 128/84 07/07 1600 98 Room Air Intake & Output 07/08 1600 07/08 0800 05 0000 Intake Total 540 380 580 Output Total 016 148 9705 Balance -110 -220 -620 Intake, IV 200 Intake, Oral 540 380 380 Number 2 Bowel Movements Output, Urine 419 522 3707 Physical Exam General Appearance: well developed/nourished, no apparent distress, alert, awake Head: atraumatic Ears, Nose, Throat: normal pharynx, normal ENT inspection, hearing grossly normal Neck: normal inspection, supple, full range of motion Cardiovascular: regular rate/rhythm Respiratory: normal breath sounds, chest non-tender, no respiratory distress Abdomen: normal bowel sounds, soft, non-tender Back: normal inspection, normal range of motion Extremities: normal inspection, normal capillary refill, normal range of motion, no edema Neurologic/Psychiatric: no motor/sensory deficits, awake, alert, oriented x 3 Current Medications: Current Medications Sig/Argelia Start time Last Medication Dose Route Stop Time Status Admin Acetaminophen 500 MG Q6P PRN 07/08 1315 DCD 07/08 PO 1309 Acetaminophen 1,000 MG Q6H 07/07 0415 DC 07/07 N/A 1 UNIT IV 07/07 Amlodipine Besylate 2.5 MG DAILY 07/08 899 DCD 07/08 PO 0805 Apixaban 2.5 MG BID 07/06 899 DCD 07/08 PO 0804 Docusate Sodium 100 MG BID PRN 07/06 899 DCD 07/08 PO 0809 Estradiol 0.5 MG DAILY 07/06 899 DCD 07/08 PO 0804 Furosemide 20 MG DAILY PRN 07/05 0945 DCD PO Losartan Potassium 50 MG DAILY 07/06 899 DCD 07/08 PO 0804 Melatonin 5 MG AT BEDTIME 07/06 2199 DCD 07/07 PO 2125 Metoprolol Tartrate 12.5 MG BID 07/06 2100 DCD 07/08 PO 0805 Morphine Sulfate 2 MG Q3P PRN 07/05 1200 DC 07/06 IV 1339 Morphine Sulfate 4 MG Q3P PRN 07/05 1200 DC IV Ondansetron HCl 4 MG Q6P PRN 07/05 1200 DCD IV Oxycodone/ 1 TAB Q4P PRN 07/05 1200 DC 07/06 Acetaminophen PO 1143 Oxycodone/ 2 TAB Q4P PRN 07/05 1200 DC Acetaminophen PO Polyethylene Glycol 17 GM DAILY NEEDED PRN 07/05 1200 DCD 07/08 PO 0809 Senna/Docusate Sodium 2 TAB DAILY PRN 07/06 0900 DCD 07/08 PO 0809 Tramadol HCl 50 MG Q6P PRN 07/07 1730 DCD PO Trazodone HCl 50 MG AT BEDTIME NEED.. 07/05 2130 DC 07/06 PO 205 Results Last 24 Hrs Lab/Zeyad Results: Laboratory Tests 07/08/17 0654: Anion Gap 9, Estimated GFR 53 L, BUN/Creatinine Ratio 18.0, CBC w Diff NO MAN DIFF REQ, RBC 3.91 L, MCV 84.7, MCH 28.5, MCHC 33.6, RDW 15.2 H, MPV 8.0, Gran % 72.7, Lymphocytes % 14.9 L, Monocytes % 7.9, Eosinophils % 4.0, Basophils % 0.5, Absolute Granulocytes 6.6 H, Absolute Lymphocytes 1.3, Absolute Monocytes 0.7 H, Absolute Eosinophils 0.4, Absolute Basophils 0 Edward Alejandro MD 07/08/17 9046: Attending MD Review Statement Attending Sign Off Attending Cosign Statement: I have: examined this patient, reviewed [employer]bl EMR data, discussd w/resident/PA/ GALLEY HAND, discussed mgmt plan w/edouard, discussed mgmt plan w/pt, agreed w/resident/PA/GALLEY HAND , amended to note. Other Findings: The patient was seen and discussed with house staff. Agree with plan of care outlined. OK to transfer to [facility]. Delirium improved.
--- NOTE | 2017-07-08 09:16 | Patient Discharge Instructions ---
Discharge Instructions General Discharge Information You were seen/treated for: left knee pain You had these procedures: left total knee arthroplasty complicated by post-op A-fib and post-op delerium Watch for these problems: fever over 100.5 drainage from wound redness around wound unable to bear weight on left leg No bath, but you may shower: Yes Other wound care: keep wound warm and dry Diet Continue normal diet: Yes Activity Activity Self Limited: Yes Activity Limited to: Weight bear as tolerated (with rolling walker) Acute Coronary Syndrome Inclusion Criteria At DC or during hospital stay patient has or had the following: ACS DIAGNOSIS No Discharge Core Measures Meds if any: Prescribed or Continued at Discharge Meds if any: NOT Prescribed or Continued at Discharge Congestive Heart Failure Inclusion Criteria At DC or during hospital stay patient has or had the following: CHF DIAGNOSIS No Discharge Core Measures Meds if any: Prescribed or Continued at Discharge Meds if any: NOT Prescribed or Continued at Discharge Cerebrovascular accident Inclusion Criteria At DC or during hospital stay patient has or had the following: CVA/TIA Diagnosis No Discharge Core Measures Meds if any: Prescribed or Continued at Discharge Meds if any: NOT Prescribed or Continued at Discharge Venous thromboembolism Inclusion Criteria VTE Diagnosis No VTE Type NONE VTE Confirmed by (Test) NONE Discharge Core Measures - Per Current guidelines, there needs to be overlap - treatment for the first 5 days of Warfarin therapy. - If discharged on Warfarin prior to 5 days of - overlap therapy, the patient will need to be - assessed for post discharge needs including - *Post discharge parental anticoagulation - *Warfarin and/or parental anticoagulation education - *Follow up date to check INR post discharge At least 5 days overlap therapy as Inpatient No Meds if any: Prescribed or Continued at Discharge Note: Overlap Therapy is Warfarin and Anticoagulant Meds if any: NOT Prescribed or Continued at Discharge
--- NOTE | 2017-07-08 09:43 | Surgical Discharge Summary ---
See Addendum Visit Information Visit Dates Admission Date: 07/05/17 Discharge Date: 07/08/17 History of Present Illness Chief Complaint: left knee pain Medical History Blood Transfusion Hx: No Neurological: NONE EENT: NONE Cardiovascular: HTN, LE EDEMA Respiratory: NONE Gastrointestinal: NONE Hepatic: NONE Renal: 1 KIDNEY (HX OF CA) Musculoskeletal: NONE Psychiatric: NONE Endocrine: NONE Blood Disorders: NONE Cancer(s): NONE SLITTING MACHINE OPERATOR/Reproductive: NONE History of MRSA: No History of VRE: No History of CDIFF: No Isolation History: Standard Surgical History Pertinent Surgical History: R NEPHRECTOMY Psychosocial History Where Do You Live? Home Who Do You Live With? Son What is Your Primary Language? Korean Review of Systems: [facility] Hospital Course Course Attending Physician: Neha STINSON,Gregorio Primary Care Physician: Tano Sue APRN [facility] Course: Pt presented to [facility] on July 05, 2017 for elective left total knee replacement by Gregorio Solomon MD. She tolerated the procedure well. Postoperatively she was noted to be an rapid A. fib for which a cardiology consult was called and patient was transferred to a telemetry floor. She was converted back to normal sinus rhythm with medication alone. Then patient developed bradycardia due to beta-diogo for which dose adjustments were made and this resolved. Postoperatively her pain was managed with narcotics. On postop day 1 she was noted to be confused and agitated, this was attributed to narcotic induced delirium. All narcotics were stopped at this time and pain was managed with IV and p.o. Tylenol. She was tolerating her diet, voiding spontaneously, and her pain was well controlled. She was ambulating with physical therapy using a rolling walker. It was recommended that she be discharged to short-term rehab on postop day 3 recommendations were made to follow-up with Gregorio Solomon MD in 2 weeks and to follow-up with the pipe welder, Dr. Fitzpatrick in 1-2 weeks. Complications: post-op rapid A-fib post-op narcotic induced delerium Allergies: Coded Allergies: No Known Allergies (06/28/17) Disposition Summary Disposition Principal Diagnosis: left knee OA Additional Diagnosis: SP Left TKA Discharge Disposition: SNF Discharge Instructions General Discharge Information Code Status: Full Code Patient's Diet: regular Patient's Activity: WBATA with rolling walker Follow-Up Instructions/Appts: Follow-up with Gregorio Solomon MD in 2 weeks Follow-up with Dr. Fitzpatrick in 2 weeks Medications at Discharge Discharge Medications: Stop taking the following medications: Amlodipine Besylate (Amlodipine Besylate) 5 MG TABLET ORAL DAILY Continue taking these medications: Tramadol HCl (Tramadol HCl) 50 MG TABLET 1 Tablet ORAL THREE TIMES A DAY NEEDED Trazodone HCl (Trazodone HCl) 50 MG TABLET 1 Tablet ORAL Every night Furosemide (Lasix) 20 MG TABLET 1 Tablet ORAL as needed for DIURETIC Estradiol (Estrace) 0.5 MG TABLET 1 Tablet ORAL DAILY Losartan Potassium (Losartan Potassium) 50 MG TABLET 1 Tablet ORAL DAILY Qty = 90 Lidocaine (Lidocaine) 5 % ADH..PATCH 1-2 Patch On the skin DAILY Fluticasone Propionate (Fluticasone Propionate) 50 MCG/ACTUATION SPRAY.SUSP 1 [place] Both sides of nose as needed for ALLERGIES Start taking the following new medications: Amlodipine (Norvasc) 2.5 MG TABLET 1 Tablet ORAL DAILY Qty = 30 No Refills Apixaban (Eliquis) 2.5 MG TABLET 1 Tablet ORAL TWICE DAILY Qty = 120 No Refills Instructions: take for 6 week post-op Metoprolol Tartrate (Metoprolol Tartrate) 25 MG TABLET 0.5 Tablet ORAL TWICE DAILY Qty = 60 No Refills Acetaminophen (Tylenol Extra Strength) 500 MG TABLET 1-2 Tablet ORAL EVERY SIX HOURS Qty = 60 No Refills Copies To: Tano Sue APRN
--- NOTE | 2017-07-08 09:44 | Admission Core Measures ---
Acute Coronary Syndrome (CM) ACS Core Measures Acute Coronary Syndrome Diagnosis No Congestive Heart Failure (NEW) CHF Core Measures Congestive Heart Failure Diagnosis No Cerebrovascular Accident (NEW) CVA Core Measures CVA/TIA Diagnosis No Venous Thromboembolism VTE Core Abbie (View Protocol) VTE Risk Factors Surgery No Mechanical VTE Prophylaxis d/t N/A MechProphylax Ordered No VTE Pharm Prophylaxis d/t NA PharmProphylax ordered Problem List As ranked by this Provider includes Assessment & Plan 1. Status post left knee replacement HOME MEDS Home Med List Acetaminophen (Tylenol Extra Strength) 500 MG TABLET 1-2 TAB PO Q6 knee pain Amlodipine (Norvasc) 2.5 MG TABLET 1 TAB PO DAILY cardiac Amlodipine Besylate 5 MG TABLET 1 TAB PO DAILY HTN (Reported) Apixaban (Eliquis) 2.5 MG TABLET 1 TAB PO BID post-op anticoagulation Estradiol (Estrace) 0.5 MG TABLET 1 TAB PO DAILY HORMONE (Reported) Fluticasone Propionate 50 MCG/ACTUATION SPRAY.SUSP 1 SPRAY NASB PRN ALLERGIES (Reported) Furosemide (Lasix) 20 MG TABLET 1 TAB PO PRN DIURETIC (Reported) Lidocaine 5 % ADH..PATCH 1-2 PAT TOP DAILY PAIN (Reported) Losartan Potassium 50 MG TABLET 1 TAB PO DAILY BP (Reported) Metoprolol Tartrate 25 MG TABLET 0.5 TAB PO BID htn Tramadol HCl 50 MG TABLET 1 TAB PO TIDPRN PAIN (Reported) Trazodone HCl 50 MG TABLET 1 TAB PO QPM SLEEP (Reported)
[2017-07-08 10:39] VITALS: BP 140/88
[2017-08-27] MEDS ORDERED: KEFLEX500 M1 PO (22:05)
== END 2017-07-08 15:40 | DRG 470 ==
LOC: 1NO 01:13 → SDA 01:13 → ENRESERV 10:09 → EDBEDREQ 11:38 → ENRESERV 11:48 → ENTRNSPT 13:00 → EDTRNSPT 13:18 → EDTRNSPTSTS 13:18 → CMPTRNSPT 13:41 → 1NO 13:43 → ENPENDDIS 07-08 09:17 → 1NO 07-08 15:40
PROVIDERS: Nurse Practitioner; Physician Assistant Surgical
PROC: 3E0T3BZ Introduction of Anesthetic Agent into Peripheral Nerves and Plexi, Percutaneous Approach (ICD-10-PCS; principal; 2017-07-05)
PROC: 0SRD0J9 Replacement of Left Knee Joint with Synthetic Substitute, Cemented, Open Approach (ICD-10-PCS; principal; 2017-07-05)
DX: M17.12 Unilateral primary osteoarthritis, left knee (principal); F05 Delirium due to known physiological condition; D64.9 Anemia, unspecified; I97.89 Other postprocedural complications and disorders of the circulatory system, not elsewhere classified; F11.921 Opioid use, unspecified with intoxication delirium; R00.1 Bradycardia, unspecified; I10 Essential (primary) hypertension; K21.9 Gastro-esophageal reflux disease without esophagitis; Z90.49 Acquired absence of other specified parts of digestive tract; Z96.651 Presence of right artificial knee joint; Z79.51 Long term (current) use of inhaled steroids; Z90.5 Acquired absence of kidney
CPT/HCPCS: 1NP; 36415; 73560-LT; 82436; 87086; 88305; 93005; 93010; 93306; 97110-GO; 97116-GO; 97161-GP; 97530-GO; C1713; J0131; J0171; J1100; J1885; J2405; J2795; J3370; J7040; J7060

== ENCOUNTER 2017-09-01 08:45 | Emergency (ER) | payer OTHER, MEDICARE ==
[~2017-09-01] VITALS: Ht 154.9 cm; Wt 68.0 kg
[~2017-09-01 08:45] MED LIST changes: +ELIQUIS2.5 M1 PO; +METOPROLOL TART25 M1 PO; +NORVASC2.5 M1 PO; +TYLENOL EXTRA500 M2 PO
[2017-09-01 08:50] VITALS: BP 159/89
--- NOTE | 2017-09-01 09:19 | ED ANIMAL BITE/WOUND CHECK ---
History of Present Illness General Chief Complaint: Suture Removal/Wound Recheck Stated Complaint: SUTURE REMOVAL? Source: patient Exam Limitations: no limitations Vital Signs & Intake/Output Vital Signs & Intake/Output Vital Signs Date Time Temp Pulse Resp B/P B/P Pulse O2 O2 Flow FiO2 Mean Ox Delivery Rate 09/01 0850 97.8 76 20 159/89 99 Room Air Allergies Coded Allergies: adhesive tape (RASH PER PT 08/27/17) Reconcile Medications Acetaminophen (Tylenol Extra Strength) 500 MG TABLET 1-2 TAB PO Q6 knee pain Amlodipine (Norvasc) 2.5 MG TABLET 1 TAB PO DAILY cardiac Apixaban (Eliquis) 2.5 MG TABLET 1 TAB PO BID post-op anticoagulation take for 6 week post-op Cephalexin (Keflex) 500 MG CAPSULE 1 CAP PO BID INFECTION Estradiol (Estrace) 0.5 MG TABLET 1 TAB PO DAILY HORMONE (Reported) Fluticasone Propionate 50 MCG/ACTUATION SPRAY.SUSP 1 SPRAY NASB PRN ALLERGIES (Reported) Furosemide (Lasix) 20 MG TABLET 1 TAB PO PRN DIURETIC (Reported) Lidocaine 5 % ADH..PATCH 1-2 PAT TOP DAILY PAIN (Reported) Losartan Potassium 50 MG TABLET 1 TAB PO DAILY BP (Reported) Metoprolol Tartrate 25 MG TABLET 0.5 TAB PO BID htn Tramadol HCl 50 MG TABLET 1 TAB PO TIDPRN PAIN (Reported) Trazodone HCl 50 MG TABLET 1 TAB PO QPM SLEEP (Reported) Triage Note: HERE FOR SUTRE REMOVAL TO R FOREHEAD, SUTRES PLACED ON 08/27. Triage Nurses Notes Reviewed? yes Onset: Abrupt Duration: day(s): Timing: recent history Injury Environment: home Is Injury an Animal Bite? No No Modifying Factors: none HPI: 81-year-old female comes into the emergency room for suture removal to forehead. Patient had fallen the other day. She hHAD CT SCAN OF HEAD . Which was negatie She denies any symptoms or pain. Comes in for suture removal only. (Heriberto Saha) Past History Travel History Traveled to [place] past 21 day No Medical History Any Pertinent Medical History? see below for history Neurological: NONE EENT: NONE Cardiovascular: HTN, LE EDEMA Respiratory: NONE Gastrointestinal: NONE Hepatic: NONE Renal: 1 KIDNEY (HX OF CA) Musculoskeletal: NONE Psychiatric: NONE Endocrine: NONE Blood Disorders: NONE Cancer(s): NONE COATER SMOKING PIPE/Reproductive: NONE History of MRSA: No History of VRE: No History of CDIFF: No Tetanus Vaccine: 08/27/17 Surgical History Surgical History: R NEPHRECTOMY Psychosocial History Who do you live with Son What is your primary language Kazakh Tobacco Use: Never used ETOH Use: denies use Family History Hx Contributory? No (Heriberto Saha) Review of Systems Review of Systems Constitutional: Reports: no symptoms. EENTM: Reports: no symptoms. Respiratory: Reports: no symptoms. Cardiovascular: Reports: no symptoms. GI: Reports: no symptoms. Genitourinary: Reports: no symptoms. Musculoskeletal: Reports: no symptoms. Skin: Reports: see HPI. Neurological/Psychological: Reports: no symptoms. Hematologic/Endocrine: Reports: no symptoms. Immunologic/Allergic: Reports: no symptoms. All Other Systems: Reviewed and Negative (Heriberto Saha) Physical Exam Physical Exam General Appearance: well developed/nourished, mild distress Head: atraumatic Eyes: Bilateral: normal appearance. Ears, Nose, Throat: normal ENT inspection, hearing grossly normal Neck: normal inspection Respiratory: no respiratory distress Back: normal inspection Extremities: normal range of motion Neurologic/Psych: awake, alert, oriented x 3, normal mood/affect Skin: intact, normal color, warm/dry (Heriberto Saha) Progress Differential Diagnosis: abscess, cellulitis, joint infection, tenosysnovitis Plan of Care: 09/01/2017 9:24:51 AM Patient clinically looks well. Patient is in no apparent distress. Nontoxic- appearing. 3 Sutures removed. (Heriberto Saha) Departure Departure Disposition: HOME OR SELF CARE Condition: Stable Clinical Impression Primary Impression: Visit for suture removal Referrals: Tano Sue APRN (PCP/Family) Additional Instructions: Return if any other concerns worsening symptoms. Please go over all results of today's visit with your primary care doctor. Contact your primary care doctor to let them know you were here in the emergency room. There may be nonspecific findings which may not be related to your visit today here in the emergency room but may require further evaluation and chronic monitoring by your primary care doctor. If you had a laceration today the chance of foreign body always remains. You should follow-up with your primary care doctor for recheck in 3-5 days for a wound check. If you had an x-ray done there is a chance that a fracture could have been missed on initial read and you should follow-up with your primary care doctor for repeat x-rays if symptoms persist. If your blood pressure was elevated here in the emergency room please have rechecked by hyour primary care doctor within the next 48. If you were prescribed a narcotic here in the emergency room or any type of controlled substances you're not allowed to drive while taking this medication or operate any type of heavy machinery. Narcotics can make you feel lightheaded dizziness nausea and can cause constipation. You may need to chart picker a stool softener. Thank you for choosing [facility] emergency room. Please return to the emergency room immediately if you have any other concerns worsening of symptoms. Departure Forms: Customer Survey General Discharge Information (Heriberto Saha) [employer] Co-Sign Statement Statement: ED Attending supervision documentation- [] I saw and evaluated the patient. I have also reviewed all the pertinent lab results and diagnostic results. I agree with the findings and the plan of care as documented in the PA's[employer]'s documentation. [X] I have reviewed the ED Record and agree with the PA's[employer]'s documentation. [] Additions or exceptions (if any) to the PAs[employer]'s note and plan are summarized below: [] (Dallin Amaya DO)
== END 2017-09-01 09:21 ==
LOC: ERH 08:45
DX: Z48.02 Encounter for removal of sutures (principal)